=== PATIENT | male | born 1950 | race Caucasian/White ===

== ENCOUNTER 2018-09-29 13:26 | Inpatient (IN) | payer MEDICARE ==
[2018-09-29] VITALS (14 sets, daily range): BP systolic 92–124; BP diastolic 51–85; BMI 27.1
[~2018-09-29] VITALS: Ht 170.2 cm; Wt 77.1 kg
--- NOTE | ~2018-09-29 | HEMODYNAMI ---
PATIENT:TASIA HINES MEDICAL RECORD: [id number] : 50 LOCATION:D. ADMISSION DATE: 09/29/18 Generatedon:09/29/201814:32 Patient name: TASIA HINES Patient #: [id number] SSN: : 1950 Date of study: 09/29/2018 Page: Of Hemodynamic Procedure Report Patient Data Patient Demographics Procedure consent was obtained First Name: TASIA Gender: Male Last Name: FLORA : 1950 Patient #: [id number] Age: 68 year(s) Race: Unknown Additional ID: [id number] Contact details [address]: [address] [place] [address] State: [place] City: [place] Zip code: [address] Past Medical History Allergies: No known allergies Admission Admission Data Admission Date: 09/29/2018 Admission Time: 13:26 Procedure Procedure Types Cath Procedure Diagnostic Procedure LHC LHC w/Coronaries PCI Procedure Coronary Stent Coronary Stent Additional AMI/SVG/INCUBATOR MACHINE OPERATOR PTCA or Stent AMI-BMS/ERLINDA Initial Procedure Description Procedure Date Procedure Date: 09/29/2018 Procedure Start Time: 13:57 Procedure End Time: 14:23 Procedure Staff Name Function Scott Tomas MD Performing Physician Juvenal Cabrera RT Monitor Alyce Mayo RT Scrub Joseph Stevenson RN Nurse Procedure Data Cath Procedure Fluoroscopy Diagnostic fluoroscopy Total fluoroscopy Time: 7.7 time: 7.7 min min Diagnostic fluoroscopy Total fluoroscopy dose: dose: 535.36 mGy 535.36 mGy Contrast Material Contrast Material Type Amount (ml) Visipaque 320 0 Isovue 300 149 Entry Location Entry Primary Successful Side Size Upsize Upsize Entry Closure Succes sful Closure Location (Fr) 1 (Fr) 2 (Fr) Remarks Device Remarks Femoral Right 6 Fr Exoseal artery Short Diagnostic catheters Device Type Used For End Catheter Placement MULTIPACK Pigtail 5 Fr LV Angiography catheter MULTIPACK JL 4.0 5Fr Left Coronary catheter Angiography MULTIPACK 3DRC 5Fr Right Coronary catheter Angiography Procedure Complications No complications Procedure Medications Medication Administration Route Dosage Oxygen etCO2 Nasal cannula 2 l/min Lidocaine 2% added to field 20 Heparin Flush Bag added to field 2 bags (1000units/500ml NS) 0.9% NaCl I.V. 100 ml/hr Versed I.V. 1 mg Fentanyl I.V. 50 mcg Integrilin (Bolus I.V. 6.8 ml 2mg/ml) Heparin Bolus I.V. 5000 units Versed I.V. 1 mg Fentanyl I.V. 50 mcg Integrilin Drip I.V. drip 12.3 ml/hr (75mg/100ml) Hemodynamics Rest Heart Rate: 82 (bpm) Snapshots Pre Cath Intra NCS Post Cath Vital Signs Time Heart Resp SPO2 etCO2 NIBP Rhythm Pain Status Sedation Rate (ipm) (%) (mmHg) (mmHg) Level (bpm) 13:52:31 82 32 99 0 121/71(96) NSR w/ ST 10 (11) , 10(A) Elevation Unimaginable unspeakable 13:56:43 82 10 98 0 116/71(94) NSR w/ ST 0 (11) , No 10(A) Elevation pain 14:00:53 81 11 94 0 115/67(90) NSR w/ ST 0 (11) , No 9(A) Elevation pain 14:05:05 78 16 100 0 112/65(87) NSR w/ ST 0 (11) , No 9(A) Elevation pain 14:09:11 78 16 98 0 113/80(93) NSR w/ ST 0 (11) , No 9(A) Elevation pain 14:13:21 83 22 98 0 109/73(78) NSR w/ ST 0 (11) , No 9(A) Elevation pain 14:17:33 82 18 98 0 106/66(88) NSR w/ ST 0 (11) , No 10(A) Elevation pain 14:21:36 81 13 98 0 106/67(90) NSR w/ ST 0 (11) , No 10(A) Elevation pain Medications Time Medication Route Dose Verified Delivered Reason Notes Effectiveness by by 13:54:33 Oxygen etCO2 2 Scott Ruiz used for Nasal l/min Genoveva Stevenson marketing operations assistant cannula 13:54:38 Lidocaine 2% added 20ml Scott Chavez for local to vial Genoveva Tomas MD anesthetic field 13:54:47 Heparin Flush added 2 Scott Scott used for Bag to bags Genoveva Tomas MD procedure (1000units/500ml field NS) 13:54:58 0.9% NaCl I.V. 100 Scott Ruiz Per physician ml/hr Genoveva Stevenson RN 13:55:09 Versed I.V. 1 mg Scott Ruiz for sedation Genoveva Stevenson RN 13:55:17 Fentanyl I.V. 50 Scott Buffie for sedation mcg Genoveva Stevenson RN 13:59:49 Integrilin I.V. 6.8 Scott Buffie for waste d (Bolus 2mg/ml) ml Genoveva Stevenson RN antiplatelet 3.2 ml therapy of vial 14:02:39 Heparin Bolus I.V. 5000 Sctot Ruiz for verif ied units Genoveva Stevenson RN anticoagulation with dr genoveva 14:07:03 Versed I.V. 1 mg Scott Ruiz for sedation Genoveva Stevenson RN 14:07:09 Fentanyl I.V. 50 Scott Ruiz for sedation mcg Genoveva Stevenson RN 14:14:19 Integrilin Drip I.V. 12.3 Scott Buffie for Until (75mg/100ml) drip ml/hr Genoveva Stevenson RN antiplatelet bottle therapy is complete Procedure Log Time Note 13:35:42 Juvenal Cabrera RT(R) sent for patient. Start room use. 13:35:43 Time tracking: Regular hours (M-F 7:00 - 5:00) 13:35:47 Plan of Care:Hemodynamics will remain stable., Cardiac rhythm will remain stable., Comfort level will be maintained., Respiratory function will remain adequate., Patient/ family verbilizes understanding of procedure., Procedure tolerated without complication., Recovers from procedure without complications.. 13:51:26 Vital chart was started 13:51:52 Patient received from ED to CCL 3 Alert and oriented. Tansferred to table in Supine position. 13:51:53 Warm blankets applied, and rosalie hugger turned on for patient comfort. 13:51:53 Correct patient and procedure confirmed by team. 13:51:56 Signed procedure consent form obtained from spouse. 13:51:57 Baseline sample Acquired. 13:51:57 ECG and BP/O2 sat monitors applied to patient. 13:52:00 Rhythm: w/ ST elevation 13:52:01 Full Disclosure recording started 13:52:04 Pre-procedure instructions explained to patient. 13:52:05 Pre-op teaching completed and patient verbalized understanding. 13:52:07 Family in waiting room. 13:52:23 Patient allergic to No known allergies 13:52:25 Is the patient allergic to Iodine/contrast media? No. 13:52:27 Is patient on blood thinner?Yes 13:52:29 ACC The patient was administered the following blood thiners within the last 24 hours: ACCPlavix 13:52:32 Patient diabetic? No. 13:52:33 ----Pre-sedation anethsthesia assessment.---- 13:52:35 Previous problem with sedation/anesthesia? No ? 13:52:36 Snore? No 13:52:37 Sleep apnea? No 13:52:38 Deviated septum? No 13:52:39 Opens mouth fully? Yes 13:52:41 Sticks out tongue? Yes 13:52:43 Airway obstruction? No ? 13:52:47 Dentures? Yes in tight 13:54:03 Pre procedure: right dorsailis pedis pulse 2+ Normal; easily identifiable; not easily obliterated 13:54:09 Patient pain scale 10/10 cp. 13:54:14 IV patent on arrival in left antecubital with 0.9% NaCl at 10ml/hr. 13:54:22 Lab results pending. 13:54:25 Right groin area was prepped with chlora-prep and draped in sterile fashion 13:54:27 Alarms reviewed by R. N. 13:54:27 Sharps counted by scrub and verified by R.N. 13:54:29 Physician arrived 13:54:30 --------ALL STOP TIME OUT------ 13:54:30 Final Timeout: patient, procedure, and site verified with staff and physician. All members of the team are in agreement. 13:54:32 Right groin site verified by team. 13:54:33 Oxygen 2 l/min etCO2 Nasal cannula was administered by Joseph Stevenson RN; used for procedure; 13:54:34 Physical assessment completed. ASA score P 2 - A patient with mild systemic disease as per Scott Tomas MD. 13:54:37 Sedation plan: IV Moderate Sedation Medication:Versed, Fentanyl 13:54:38 Lidocaine 2% 20ml vial added to field was administered by Scott Tomas MD; for local anesthetic; 13:54:47 Heparin Flush Bag (1000units/500ml NS) 2 bags added to field was administered by Scott Tomas MD; used for procedure; 13:54:56 Use device set Femoral Dx 13:54:58 0.9% NaCl 100 ml/hr I.V. was administered by Joseph Stevenson RN; Per physician; 13:54:58 ACIST Syringe (44197) opened to sterile field. 13:54:58 Bag Decanter (2002S) opened to sterile field. 13:54:59 Medline Cath Pack ([id number]) opened to sterile field. 13:55:00 DIAGNOSTIC WIRE .035 260cm J wire ([id number]) opened to sterile field. 13:55:04 ACIST Hand Control (33870) opened to sterile field. 13:55:05 ACIST Manifold (29792) opened to sterile field. 13:55:05 DIAGNOSTIC Multipack 5Fr catheter set (BA5306) opened to sterile field. 13:55:06 Tegaderm 4 x 4 (1626W) opened to sterile field. 13:55:09 Versed 1 mg I.V. was administered by Joseph Stevenson RN; for sedation; 13:55:13 SHEATH 6FR [place] (BYF062) opened to sterile field. 13:55:17 Fentanyl 50 mcg I.V. was administered by Joseph Stevenson RN; for sedation; 13:55:20 INFLATOR Merit BasixCompak (EG4590) opened to sterile field. 13:55:40 CHOICE PT Extra Support 182cm wire ([id number]) opened to sterile field. 13:57:23 Procedure started. 13:57:43 Local anesthetic to right femoral artery with Lidocaine 2% by Scott Tomas MD.INITIAL ACCESS ONLY 13:57:50 A 6 Fr Short sheath was inserted into the Right Femoral artery 13:58:12 Zero performed for pressure channel P1 13:58:16 Zero performed for pressure channel P1 13:58:25 A MULTIPACK Pigtail 5 Fr catheter was advanced over the wire and used for LV Angiography. 13:58:29 LV angiography performed. 13:58:31 LV hemodynamics recorded. 13:58:41 EF : 40 % 13:59:11 Zero performed for pressure channel P1 13:59:17 Catheter removed. 13:59:26 A MULTIPACK JL 4.0 5Fr catheter was advanced over the wire and used for Left Coronary Angiography. 13:59:32 LCA angiography performed. 13:59:44 Catheter removed. 13:59:49 Integrilin (Bolus 2mg/ml) 6.8 ml I.V. was administered by Joseph Stevenson RN; for antiplatelet therapy; wasted 3.2 ml of vial 13:59:50 A MULTIPACK 3DRC 5Fr catheter was advanced over the wire and used for Right Coronary Angiography. 14:00:23 RCA angiography performed. 14:00:31 Zero performed for pressure channel P1 14:01:20 Catheter removed. 14:01:46 GUIDE 6FR XBLAD 4.0 catheter ([id number]) opened to sterile field. 14:01:57 6 Fr xblad 4 guide catheter was inserted over the wire 14:02:01 cptes wire advanced. 14:02:39 Heparin Bolus 5000 units I.V. was administered by Joseph Stevenson RN; for anticoagulation; verified with dr tomas 14:03:29 Wire removed. 14:03:31 Guide catheter removed. 14:03:57 GUIDE 6FR XBLAD 3.5 catheter ([id number]) opened to sterile field. 14:04:06 6 Fr xblad 3.5 guide catheter was inserted over the wire 14:04:12 cptes wire advanced. 14:06:32 Wire advanced across lesion. 14:06:49 CHOICE PT Extra Support 182cm wire ([id number]) opened to sterile field. 14:06:59 cptes wire advanced. 14:07:03 Versed 1 mg I.V. was administered by Joseph Stevenson RN; for sedation; 14:07:09 Fentanyl 50 mcg I.V. was administered by Joseph Stevenson RN; for sedation; 14:07:53 2nd wire diag 14:09:39 Inflate balloon Inflation number: 1 A EUPHORA 2.5 x 15 Balloon ([id number]) was prepped and advanced across the Mid LAD, then inflated to 7 JORGE for 0:07 (min:sec). 14::59 Inflation number: 2 The EUPHORA 2.5 x 15 Balloon ([id number]) was reinflated across the Mid LAD, to 13 JORGE for 0:10 (min:sec). 14:10:27 Balloon removed over the wire. 14:12:29 Place stent Inflation Number: 3 A INTEGRITY RX 3.0 x 09 stent ([id number]) was prepped and advanced across the Mid LAD. The stent was deployed at 13 JORGE for 0:10 (min:sec). 14:12:37 Stent catheter was removed intact over wire. 14:12:38 Wire removed. 14:13:58 Inflation number: 1 The EUPHORA 2.5 x 15 Balloon ([id number]) was reinflated across the 1st Diag, to 13 JORGE for 0:07 (min:sec). 14:14:01 Balloon removed over the wire. 14:14:19 Integrilin Drip (75mg/100ml) 12.3 ml/hr I.V. drip was administered by Joseph Stevenson RN; for antiplatelet therapy; Until bottle is complete 14:15:26 Place stent Inflation Number: 2 A INTEGRITY RX 3.0 x 15 stent ([id number]) was prepped and advanced across the 1st Diag. The stent was deployed at 15 JORGE for 0:13 (min:sec). 14:16:41 Procedure type changed to Cath procedure, Diagnostic procedure, LHC, LHC w/Coronaries, PCI procedure, Coronary Stent, Coronary Stent Additional, AMI/SVG/INCUBATOR MACHINE OPERATOR PTCA or Stent, AMI-BMS/ERLINDA Initial 14:16:56 Stent catheter was removed intact over wire. 14:16:57 Wire removed. 14:16:57 Guide catheter removed. 14:17:04 Sheath removed intact; hemostasis achieved with Exoseal to the Right Femoral artery. 14:17:40 EXOSEAL 6Fr (EX600) opened to sterile field. 14:17:43 Procedure ended.(Physican Out) 14:17:56 Fluoroscopy time 07.70 minutes. 14:18:03 Flurop Dose total: 535.36 14:18:03 Fluoroscopy dose: 535.36 mGy 14:18:09 Contrast amount:Visipaque 320 0ml. 14:18:13 Contrast amount:Isovue 300 149ml. 14:18:15 Sharps counted by scrub and verified by R.N. 14:18:15 Insertion/operative site no bleeding no hematoma. 14:18:19 Post-op/insertion site Right Femoral artery dressed using a 4 x 4 and Tegaderm. 14:18:22 Post right femoral artery:stable 14:18:23 Post Procedure Pulses reassessed and unchanged 14:18:25 Post procedure: right dorsailis pedis pulse 1+ Palpable, but thready & weak; easily obliterated. 14:18:33 Post procedure rhythm: sinus rhythm 14:18:35 Post procedure instruction explained to patient.Patient verbalizes understanding. 14:18:37 Procedure and supply charges have been captured, reviewed, submitted and are correct. 14:23:13 Procedure Complication : No complications 14:23:22 Vital chart was stopped 14:23:23 See physician's report for complete and final results. 14:23:25 Report given to CVICU. 14:23:29 Patient transfered to CVICU with Bed. 14:23:31 Procedure ended. 14:23:31 Full Disclosure recording stopped 14:23:34 End room use (Document Last) Intervention Summary Intervention Notes Time ActionType Lesion and Equipment Action# Pressure Duration Attributes Used 14:09:39 Inflate Mid LAD EUPHORA 2.5 1 7 00:07 balloon x 15 Balloon ([id number]) 14:09:59 Reinflate Mid LAD EUPHORA 2.5 2 13 00:10 balloon x 15 Balloon ([id number]) 14:12:29 Place stent Mid LAD INTEGRITY RX 3 13 00:10 3.0 x 09 stent ([id number]) 14:13:58 Reinflate 1st Diag EUPHORA 2.5 1 13 00:07 balloon x 15 Balloon ([id number]) 14:15:26 Place stent 1st Diag INTEGRITY RX 2 15 00:14 3.0 x 15 stent ([id number]) Device Usage Item Name Manufacture Quantity Catalog Number Hospital Part Current Mini mal Lot# / Charge Number Stock Stock Serial# Code [facility] Acist 1 32502 856458 783151 570948 20 Syringe ChoiceStream (30833) Systems Inc Bag Decanter Microtek 1 299102 46891 116155 5 () Medical Inc. Medline Cath Medline 1 [id number] 932421 06312 033190 5 Pack ([id number]) DIAGNOSTIC St Robbi 1 690843 798475 027804 524222 30 WIRE .035 260cm J wire (690829) ACIST Hand Acist 1 00596 392549 648722 713244 5 Control Medical (39054) Systems Inc ACIST Acist 1 67507 396240 740755 361327 5 Manifold Medical (22636) Systems Inc DIAGNOSTIC Cardinal 1 WS6754 190347 57343 254400 30 Multipack Health 5Fr catheter set (ZB8282) Tegaderm 4 x 3M 1 1626W 088461 434825 868399 5 4 (1626W) SHEATH 6FR Terumo 1 FJI153 971301 731329 209308 40 [place] (CVB716) INFLATOR Merit 1 GG9339 373572 775610 314493 15 Racktivity Medical BasixCompak (DL0315) CHOICE PT [place] 2 [id number] 054359 931229 375623 5 Extra Scientific Support 182cm wire ([id number]) MULTIPACK Cardinal 1 424507 5 Pigtail 5 Fr Health catheter MULTIPACK JL Cardinal 1 356100 5 4.0 5Fr Health catheter MULTIPACK Cardinal 1 180168 5 3DRC 5Fr Health catheter GUIDE 6FR Cardinal 1 [id number] 264471 082740 921330 3 XBLAD 4.0 Health catheter ([id number]) GUIDE 6FR Cardinal 1 [id number] 639939 192485 237153 10 XBLAD 3.5 Health catheter (12937608) EUPHORA 2.5 Medtronic 1 [id number] 670561 788107 742089 5 [id number] x 15 Balloon ([id number]) INTEGRITY RX Medtronic 1 [id number] 283408 128308 154027 5 [id number] 3.0 x 09 stent ([id number]) INTEGRITY RX Medtronic 1 [id number] 397424 001409 510412 5 [id number] 3.0 x 15 stent ([id number]) EXOSEAL 6Fr Cardinal 1 EX600 168321 532315 160583 10 (EX600) Health Signature Audit [place] Stage Time Signature Unsigned Intra-Procedure 09/29/2018 Juvenal Cabrera RT(R) 2:32:21 PM Signatures Monitor : Juvenal Cabrera RT Signature : Date : Time : [address] [place] [address]
[2018-09-29] MEDS ORDERED: COZAAR25 MG PO (13:30)
[2018-09-29] MEDS ORDERED: COZAAR100 MG PO (13:31)
[2018-09-29 14:10] LABS: HEMATOCRIT 42.1 % (42.0-54.0); HEMOGLOBIN 14.6 g/dL (13.5-17.5); MCH 28.3 pg (26.0-34.0); MCHC 34.7 g/dL (31.0-37.0); MCV 81.7 fL (80.0-100.0); MEAN PLATELET VOLUME 10.7 fL (7.4-10.4); PLATELET COUNT 260 10x3/uL (130-400); RBC 5.15 10x6/uL (4.20-6.10); RDW 13.7 % (11.5-14.5); WBC 20.6 10x3/uL (4.8-10.8)
[2018-09-29 14:15] LABS: APTT 27.4 SECONDS (22.8-39.4); INR 1.14 (0.85-1.17)
[2018-09-29 14:26] LABS: ALBUMIN 3.3 g/dL (3.4-5.0); ALKALINE PHOSPHATASE 89 U/L (46-116); ALT (SGPT) 19 U/L (10-68); CALC OSMOLALITY 282 mosm/kg (275-300); CALCIUM 8.7 mg/dL (8.5-10.1); CARBON DIOXIDE 20.5 mmol/L (21.0-32.0); CHLORIDE - SERUM 103 mmol/L (98-107); CKMB 5.3 U/L (0.0-3.6); CREATINE KINASE 79 UL (21-232); GLUCOSE 156 mg/dL (74-106); MAGNESIUM - SERUM 1.8 mg/dL (1.8-2.4); PROTEIN - SERUM 6.6 g/dL (6.4-8.2); SODIUM 139 mmol/L (136-145); UREA NITROGEN 18 mg/dL (7-18); eGFR NON AFRICAN AMERICAN 79 mL/min (90-120)
[2018-09-29 14:35] LABS: POTASSIUM - SERUM 2.9 mmol/L (3.5-5.1); TROPONIN-I 0.196 ng/mL (0.000-0.060)
[2018-09-29 15:00] LABS: ANISOCYTOSIS OCC; BASOPHILS 1 % (0-2); EOSINOPHILS 1 % (0-7); LYMPHOCYTES 15 % (15-50); MONOCYTES 10 % (2-11); NEUTROPHILS 68 % (40-80); PLATELET ESTIMATE NORMAL
--- NOTE | 2018-09-29 17:14 | NUR ---
1444 PT RECIEVED TO ROOM ALERT, OREINTED VSS O2 4L NC, DENIES PAIN, LAC PIV WITH NS 100ML/HR X4 HOURS AND INTEGRILIN 12.3 UNTIL BOTTLE EMPTY, FEMSTOP IN PLACE, R GROIN SOFT TO PALPATE, PULSES EASILY PALPABLE, FAMILY UPDATED BY DR NARAYANAN AND AT BEDSIDE 1700 VOIDED 400ML URINE, SPOKE WITH DR NARAYANAN AND OKAYED TO START DIET, LETTING AIR OUT OF FEMSTOP, PULSES EASILY PALPABLE, NO HEMATOMA OR SIGNS OF BLEEDING
--- NOTE | 2018-09-29 19:02 | NUR ---
BEDSIDE SHIFT REPORT GIVEN BY DEPARTING RN. PT LAYING FLAT IN BED. LEFT AC PIV INFUSING MD ORDERED MEDS AT SET RATE. RT GROINCATH INSERTION SITE MIKE SHOWING NO SIGNS OF BRUISING, OOZING, OR HEMATOMA. PULSES PALPATED T/O. DENIES ANY NEEDS AT THIS TIME. ASSESSMENT COMPLETE. DENIES ANY PAIN. DECLINED OFFER FOR REFRESHMENTS. AAOX4. PERRLA. SAFETY MEASURES IN PLACE. CBIR.
--- NOTE | 2018-09-29 22:21 | NUR ---
400 CLR YELLOW URINE NOTED IN URINAL. FRESH ICE WATER PROVIDED ALONG WITH PUDDING SNACK. REPOSITIONED IN BED. HEAD OF BED UP. RT GROIN INCISION SITE WDP. NO CHANGES TO NOTE. REASSESSMENT COMPLETE. VSS. IV SALINE LOCKED AND FLUSHED WITHOUT DIFFICULTY. VOICES NO NEEDS AT THIS TIME. SAFETY MEASURES IN PLACE. CBIR.
[2018-09-30] VITALS (12 sets, daily range): BP systolic 97–123; BP diastolic 54–80; Ht 170.2 cm; Wt 77.1 kg
--- NOTE | 2018-09-30 03:19 | NUR ---
REASSESSMENT COMPLETE. REPOSITIONS SELF. DENIES PAIN.
--- NOTE | 2018-09-30 08:22 | NUR ---
0700 PT RECIEVED ALERT AND ORIENTED VSS ON ROOM AIR DENIES PAIN LAC PIV SALINE LOCKED, R GROIN CATH SITE CDI, SOFT TO PALPATE AND NO SIGNS OF BLEEDING CONTINENT, ASSISTED UP TO CHAIR 0800 ATE 100% BREAKFAST AND TOOK AM MEDS WITHOUT DIFFICULTY
--- NOTE | 2018-09-30 10:23 | OP ---
PATIENT NAME: TASIA HINES MEDICAL RECORD: [id number] :50 LOCATION:[facility] ADMISSION DATE:09/29/18 SURGEON: AZEEM NARAYANAN MD DATE OF OPERATION: 09/29/2018 PROCEDURES: 1. PTCA and stent, LAD. 2. PTCA and stent, LAD diagonal. 3. Left heart catheterization. 4. Selective coronary angiography. 5. Left ventriculogram. PROCEDURE IN DETAIL: After informed consent was obtained with detailed description of risks and benefits as well as alternative therapies, the patient elected to proceed with angiogram and angioplasty. The right femoral area was prepped and draped in normal sterile fashion. The right femoral artery was cannulated via modified Seldinger technique with placement of 6-Taiwanese sheath. All catheters were exchanged through this sheath. FINDINGS: Left ventriculogram performed in standard 30-degree GAR view reveals anteroapical hypokinesis. Overall ejection fraction is 40%. SELECTIVE CORONARY ANGIOGRAPHY: 1. Right coronary has a hazy stenosis proximally that could be greater than 70%, would be better delineated by intravascular ultrasound. There is 90 plus percent stenosis in the PDA. 2. Left circumflex has moderate irregularities, but no flow-limiting stenosis. 2. Left anterior descending has total occlusion at bifurcation of the LAD and the LAD diagonal. PTCA AND STENTS OF LAD AND LAD DIAGONAL: The LAD was addressed with a 3.0 x 9-mm Integrity and the diagonal with a 3.0 x 15-mm Integrity. Result was 0% residual stenosis with faith of THOMAS 3 flow. IMPRESSION: Successful PTCA and stent of the LAD and diagonal, going from 100% initial stenosis to 0% residual stenosis. TRANSINT:[id number] Voice Confirmation ID: [id number] DOCUMENT ID: [id number] AZEEM NARAYANAN MD at 1023 CC: [id number] DICTATION DATE: 09/29/18 1423 CABLE TOWER OPERATOR: 09/29/18 1632 [place] [address]
--- NOTE | 2018-09-30 10:23 | HP ---
PATIENT: TASIA HINES MEDICAL RECORD: [id number] ACCOUNT: [id number] LOCATION:[facility] D.CV01 : 50 ADMISSION DATE: 09/29/18 PCP: LOTTIE SIMEON HISTORY AND PHYSICAL EXAMINATION DIAGNOSES: 1. Acute anterior myocardial infarction. 2. Hypertension. HISTORY OF PRESENT ILLNESS: This is a gentleman with no history of ischemic heart disease, presents with acute chest pain. EKG is compatible with an acute anterior myocardial infarction. REVIEW OF SYSTEMS: The patient reports easy bruising but reports no swollen glands. The patient reports no fever, no night sweats, no significant weight gain, no significant weight loss. No significant exercise tolerance. The patient reports no dry eyes, no irritation, no vision change. Patient reports no difficulty hearing and no ear pain. Patient reports no frequent nose bleeds or nose and sinus problems. Patient reports on arm pain on exertion. No shortness of breath while lying down. No history of heart murmur. Patient reports no cough, no wheezing or coughing up blood. Patient reports no abdominal pain, no vomiting. Normal appetite. No diarrhea and not vomiting blood. No nausea and no constipation. Patient reports no incontinence. No difficulty urinating. No hematuria. No increased frequency. Patient reports no muscle aches. No weakness, no arthralgias, no back pain. No swelling of the extremities. Patient reports no abnormal mole, no jaundice, no rashes. Reports no loss of consciousness. No weakness and no numbness. No seizures, dizziness, or headaches. The patient reports no depression, no sleep disturbance, feeling safe in a relationship and no alcohol abuse. Patient reports on fatigue. Reports no runny nose or sinus pressure. No itching, no hives, and no frequent sneezing. PHYSICAL EXAMINATION: GENERAL APPEARANCE: Well-nourished, well-developed, appears stated age. Level of distress, comfortable. PSYCHIATRIC: Mental status, alert, normal affect. Orientation, oriented to time, place and person. EYES: Lids and conjunctiva, noninjected. No discharge, no pallor. ENT: Lips, teeth, gums, normal dentition. Oropharynx, no cyanosis, no pallor. NECK: Carotid arteries, bilateral normal upstroke, no bruits, no thrills. JUGULAR VEINS: No jugular venous pressure or distention. CERVICAL LYMPH NODES: Nontender, nonenlarged. THYROID: Not enlarged. Nontender. No nodules. LUNGS: Respiratory effort, unlabored. CHEST: Normal curvature. No thoracic deformity. No chest wall tenderness. Percussion, resonant. Auscultation, clear. No wheezes, no rales, no rhonchi. CARDIOVASCULAR: Precordial exam, nondisplaced. No heaves or pericardial thrills. Rate and rhythm, regular. Heart sounds, normal S1, normal S2. No S3, no gallop, no rub. Systolic murmur, not heard. Diastolic murmur, not heard. EXTREMITIES: No cyanosis, no edema. Peripheral pulses, full and equal in all extremities, except as noted. No bruits appreciated. ABDOMEN: Soft, nondistended. Normal aorta. No bruit. Nontender. No masses. Liver, nontender, no hepatomegaly. Spleen, nontender, no splenomegaly. MUSCULOSKELETAL: No joint tenderness. No joint swelling. No erythema. NEUROLOGICAL: Normal gait, normal strength, normal tone. HISTORY AND PHYSICAL [id number] SAMITTTASIA SKIN: Warm and dry. OVERALL IMPRESSION: Acute anterior myocardial infarction. We will proceed with coronary angiography. Further care depends upon the findings of the angiography. TRANSINT:[id number] Voice Confirmation ID: [id number] DOCUMENT ID: [id number] AZEEM NARAYANAN MD at 1023 CC: [id number] DICTATION DATE: 09/29/18 1350 MANAGER DISCOVERY: 09/29/18 1421 ADM IN [place] [id number] [place] [address]
--- NOTE | 2018-09-30 12:06 | MORECARE ---
CASE MANAGEMENT DISCHARGE SUMMARY PATIENT: TASIA HINES UNIT: [id number] ADM DATE: 09/29/18 AGE: 68 : 50 SEX: M ROOM/BED: D.[facility] AUTHOR: CHRISTIANA,DOC PHYSICIAN: REFERRING PHYSICIAN: AZEEM NARAYANAN MD DATE OF SERVICE: 09/30/18 Discharge Plan Patient Name: TASIA HINES Facility: [facility]:[place] : 1950 Planned Disposition: Home Anticipated Discharge Date: Discharge Date: Expected LOS: Initial Reviewer: [email or web address] Initial Review Date: 09/29/2018 Generated: 09/30/18 1:06 pm Comments DCP- Discharge Planning Updated by [email or web address]: Mary Carmen Walker on 09/30/18 11:[address] Patient Name: TASIA HINES Admission Status: ER Accout number: [id number] Admission Date: 09-29-2018 : 1950 Admission Diagnosis: Attending: SAIRA NARAYANAN Current LOS: 1 Anticipated DC Date: Planned Disposition: Home Primary Insurance: [employer] / [email or web address] Discharge Planning Comments: CM met with patient and spouse at bedside after obtaining verbal consent. Patient states he plans on returning home after discharge with his . Patient states he will have family transport him home via private vehicle. Patient denies any discharge needs at this time. CM will continue to follow and assist as needed for discharge planning / needs. Manhole Stripper: Mary Carmen Walker DCPIA - Discharge Planning Initial Assessment Updated by [email or web address]: Mary Carmen Walker on 09/30/18 12:04 pm * Is the patient Alert and Oriented? Yes * How many steps to enter\exit or inside your home? * PCP DR. SIMEON * Pharmacy [facility] * Preadmission Environment Home with Family * ADLs Independent * Equipment None * List name and contact numbers for known caregivers / representatives who currently or will assist patient after discharge: LOTTIE MAKI - SON- [phone] * Verbal permission to speak to the caregivers and representatives has been obtained from the patient. N/A * Community resources currently utilized None * Additional services required to return to the preadmission environment? No * Can the patient safely return to the preadmission environment? Yes * Has this patient been hospitalized within the prior 30 days at any hospital? No Patient Name: TASIA HINES Page 16487 at 1206 All edits/amendments must be made on the electronic document DICTATION DATE: 09/30/18 1206 EGG FACTORY WORKER: GRETTA 09/30/18 1206 RPT#: [id number] DC DATE: STATUS: ADM IN [facility] [address] [place] [address] END OF REPORT
--- NOTE | 2018-09-30 12:18 | NUR ---
1000 REPOSITIONED IN CHAIR VSS DENIES PAIN 1099 SEEN BY JAVIER RAGLAND TO RI AND COME TO GIG TENDER FOR NEXT CATH AND STENT TO [facility], WRITTEN PRESCRIPTIONS GIVEN TO AND PT AFTER REVIEWING, BOTH DENY ANY QUESTIONS, PIV REMOVED TIP INTACT, DENIES ALL NEEDS, ASSISTED TO CAR AT 1200
--- NOTE | 2018-09-30 15:21 | MORECARE ---
CASE MANAGEMENT DISCHARGE SUMMARY PATIENT: TASIA HINES UNIT: [id number] ADM DATE: 09/29/18 AGE: 68 : 50 SEX: M ROOM/BED: D[facility] AUTHOR: CHRISTIANA,DOC PHYSICIAN: REFERRING PHYSICIAN: AZEEM NARAYANAN MD DATE OF SERVICE: 09/30/18 Discharge Plan Patient Name: TASIA HINES Facility: [facility]:[place] : 1950 Planned Disposition: Home Anticipated Discharge Date: Discharge Date: 09/30/2018 Expected LOS: Initial Reviewer: [email or web address] Initial Review Date: 09/29/2018 Generated: 09/30/18 4:21 pm Comments DCP- Discharge Planning Updated by [email or web address]: Mary Carmen Walker on 09/30/18 11:[address] Patient Name: TASIA HINES Admission Status: ER Accout number: [id number] Admission Date: 09-29-2018 : 1950 Admission Diagnosis: Attending: SAIRA NARAYANAN Current LOS: 1 Anticipated DC Date: Planned Disposition: Home Primary Insurance: [employer] Discharge Planning Comments: CM met with patient and spouse at bedside after obtaining verbal consent. Patient states he plans on returning home after discharge with his . Patient states he will have family transport him home via private vehicle. Patient denies any discharge needs at this time. CM will continue to follow and assist as needed for discharge planning / needs. Road Roller Engineer: Mary Carmen Walker DCPIA - Discharge Planning Initial Assessment Updated by [email or web address]: Mary Carmen Walker on 09/30/18 12:04 pm * Is the patient Alert and Oriented? Yes * How many steps to enter\exit or inside your home? * PCP DR. SIMEON * Pharmacy [facility] * Preadmission Environment Home with Family * ADLs Independent * Equipment None * List name and contact numbers for known caregivers / representatives who currently or will assist patient after discharge: LOTTIE MAKI - SON- [phone] * Verbal permission to speak to the caregivers and representatives has been obtained from the patient. N/A * Community resources currently utilized None * Additional services required to return to the preadmission environment? No * Can the patient safely return to the preadmission environment? Yes * Has this patient been hospitalized within the prior 30 days at any hospital? No Last DP export: 09/30/18 11:06 a Patient Name: TASIA HINES Page 84340 at 1521 All edits/amendments must be made on the electronic document DICTATION DATE: 09/30/18 152 BAND SPLICER: GRETTA 09/30/181520 RPT#: [id number] DC DATE:09/30/18 STATUS: DIS IN [facility] [address] [place] [address] END OF REPORT
[2018-10-01] MEDS ORDERED: PRAVACHOL20 MG PO (02:07)
[2018-10-01] MEDS ORDERED: PLAVIX75 MG PO (02:07)
[2018-10-01] MEDS ORDERED: TOPROL XL50 MG PO (02:09)
[2018-10-01] MEDS ORDERED: BAYER CHEWABLE81 MG PO (02:14)
--- NOTE | 2018-10-02 18:15 | DS ---
PATIENT:TASIA HINES :[birth year] MEDICAL RECORD: [id number] DISCHARGE SUMMARY ADMISSION DATE: 09/29/18 DISCHARGE DATE: 09/30/18 DISCHARGE DIAGNOSES: 1. Acute anterior myocardial infarction. 2. Coronary artery disease. 3. Hypertension. 4. Hyperlipidemia. HOSPITAL COURSE: Mr. Hines presents with an acute anterior myocardial infarction and underwent successful PTCA and stent of the LAD and LAD diagonal. Discharged home on aspirin, Plavix, Pravachol, and metoprolol. We will follow up next Saturday for PTCA and stent of the right coronary artery. TRANSINT:[id number] Voice Confirmation ID: [id number] DOCUMENT ID: [id number] AZEEM NARAYANAN MD at 1815 CC: [id number] DICTATION DATE: 09/30/18 1121 DIGITAL PRODUCER: 09/30/18 2225 DIS IN 09/30/18 [facility] [address] [place] [address]
== END 2018-09-30 12:00 | disposition home or self-care (01) | DRG 249 ==
LOC: D.ER 13:26 → D.CVICU 14:45
PROVIDERS: Emergency Medicine; ADMIT Internal Medicine Interventional Cardiology
PROC: 02713FZ Dilation of Coronary Artery, Two Arteries with Three Intraluminal Devices, Percutaneous Approach (ICD-10-PCS; principal; 2018-09-30)
PROC: B241ZZ3 Ultrasonography of Multiple Coronary Arteries, Intravascular (ICD-10-PCS; 2018-09-30)
PROC: B2111ZZ Fluoroscopy of Multiple Coronary Arteries using Low Osmolar Contrast (ICD-10-PCS; 2018-09-30)
PROC: B2151ZZ Fluoroscopy of Left Heart using Low Osmolar Contrast (ICD-10-PCS; 2018-09-30)
PROC: 4A023N7 Measurement of Cardiac Sampling and Pressure, Left Heart, Percutaneous Approach (ICD-10-PCS; 2018-09-30)
DX: I21.09 ST elevation (STEMI) myocardial infarction involving other coronary artery of anterior wall (principal); I25.119 Atherosclerotic heart disease of native coronary artery with unspecified angina pectoris; E78.5 Hyperlipidemia, unspecified; I10 Essential (primary) hypertension; M54.2 Cervicalgia; R07.9 Chest pain, unspecified

== ENCOUNTER 2018-09-30 13:50 | Inpatient (IN) | payer MEDICARE ==
[~2018-09-30] VITALS: Ht 170.2 cm; Wt 75.5 kg
[2018-09-30] VITALS (15 sets, daily range): BP systolic 100–130; BP diastolic 62–88; Ht 170.2 cm; Wt 75.5 kg
--- NOTE | ~2018-09-30 | HEMODYNAMI ---
PATIENT:TASIA HINES MEDICAL RECORD: [id number] : 50 LOCATION:[facility] ADMISSION DATE: 09/30/18 Generatedon:09/30/201816:06 Patient name: TASIA HINES Patient #: [id number] SSN: : 1950 Date of study: 09/30/2018 Page: Of Hemodynamic Procedure Report Patient Data Patient Demographics Procedure consent was obtained First Name: TASIA Gender: Male Last Name: FLORA : 1950 Patient #: [id number] Age: 68 year(s) Race: Unknown Additional ID: [id number] Contact details Address: [address] [place] [address] State: [place] City: [place] Zip code: [address] Past Medical History Allergies: No known allergies Admission Admission Data Admission Date: 09/30/2018 Admission Time: 14:42 Room #: [facility] Procedure Procedure Types Cath Procedure Diagnostic Procedure LHC LHC w/Coronaries FFR/IVUS Intra-Coronary IVUS Initial Intra-Coronary IVUS Additional Aortic Root Angiography PCI Procedure Coronary Stent Coronary Stent Initial x2 Procedure Description Procedure Date Procedure Date: 09/30/2018 Procedure Start Time: 15:30 Procedure End Time: 16:02 Procedure Staff Name Function Scott Tomas MD Performing Physician Juvenal Cabrera RT Monitor Alyce Mayo RT Scrub Mesfin Cortes RN Nurse Procedure Data Cath Procedure Fluoroscopy Diagnostic fluoroscopy Total fluoroscopy Time: 8 time: 8 min min Diagnostic fluoroscopy Total fluoroscopy dose: dose: 1543 mGy 1543 mGy Contrast Material Contrast Material Type Amount (ml) Isovue 300 214 Entry Location Entry Primary Successful Side Size Upsize Upsize Entry Closure Succes sful Closure Location (Fr) 1 (Fr) 2 (Fr) Remarks Device Remarks Femoral Left 6 Fr Exoseal artery Short Diagnostic catheters Device Type Used For End Catheter Placement Medtronic Dexterity 5Fr Right Coronary 3DRC catheter (NO COST Angiography SUPPLY) DIAGNOSTIC Pigtail 5Fr LV Angiography catheter ([id number]) Procedure Complications No complications Procedure Medications Medication Administration Route Dosage Effient P.O. 60 mg Fentanyl I.V. 50 mcg Versed I.V. 1 mg Oxygen etCO2 Nasal cannula 2 l/min Heparin Flush Bag added to field 2 bags (1000units/500ml NS) 0.9% NaCl I.V. 100 ml/hr Lidocaine 2% added to field 20 Heparin Bolus I.V. 4000 units Lopressor I.V. 5 mg Fentanyl I.V. 50 mcg Versed I.V. 1 mg Hemodynamics Rest Heart Rate: 107 (bpm) Snapshots Pre Cath Intra NCS Post Cath Vital Signs Time Heart Resp SPO2 etCO2 NIBP (mmHg) Rhythm Pain Sedation Rate (ipm) (%) (mmHg) Status Level (bpm) 15:25:24 102 16 95 0 140/77(107) NSR 0 (11) 10(A) , No pain 15:29:36 102 17 94 0 132/82(113) NSR 0 (11) 10(A) , No pain 15:33:46 98 17 97 0 120/78(98) NSR 0 (11) 9(A) , No pain 15:37:54 101 17 97 0 126/75(103) NSR 0 (11) 9(A) , No pain 15:42:02 100 18 96 0 130/79(105) NSR 0 (11) 9(A) , No pain 15:46:11 89 21 98 0 133/80(106) NSR 0 (11) 9(A) , No pain 15:50:22 86 19 98 0 138/83(109) NSR 0 (11) 9(A) , No pain 15:54:31 89 21 99 0 133/87(114) NSR 0 (11) 9(A) , No pain 15:58:02 91 20 98 0 131/85(107) NSR 0 (11) 9(A) , No pain 16:02:12 91 19 97 0 130/84(107) NSR 0 (11) 9(A) , No pain Medications Time Medication Route Dose Verified Delivered Reason Notes Effectiveness by by 15:30:57 Effient P.O. 60 mg Scott Toure for Genoveva Cortes RN antiplatelet therapy 15:31:03 Fentanyl I.V. 50 Scott Toure for sedation mcg Genoveva Cortes RN 15:31:10 Versed I.V. 1 mg Scott Mesfin for sedation Genoveva Cortes RN 15:38:40 Oxygen etCO2 2 Scott Mesfin Per physician Nasal l/min Genoveva Cortes RN cannula 15:38:48 Heparin Flush added 2 Scott Mesfin used for Bag to bags Genoveva Cortes RN procedure (1000units/500ml field NS) 15:38:56 0.9% NaCl I.V. 100 Scott Mesfin Per physician ml/hr Genoveva Cortes RN 15:39:06 Lidocaine 2% added 20ml Scottsubha Javiery used for to vial Genoveva Cortes RN procedure field 15:42:23 Heparin Bolus I.V. 4000 Scott Mesfin for units Genoveva Cortes RN anticoagulation 15:42:36 Lopressor I.V. 5 mg Scott Javiery for arrhythmia Genoveva Cortes RN 15:55:38 Fentanyl I.V. 50 Scott Mesfin for sedation mcg Genoveva Cortes RN 15:55:43 Versed I.V. 1 mg Scott Javiery for sedation Genoveva Cortes RN Procedure Log Time Note 15:10:06 Juvenal Parksit RT(R) sent for patient. Start room use. 15:18:07 Time tracking: Regular hours (M-F 7:00 - 5:00) 15:18:11 Plan of Care:Hemodynamics will remain stable., Cardiac rhythm will remain stable., Comfort level will be maintained., Respiratory function will remain adequate., Patient/ family verbilizes understanding of procedure., Procedure tolerated without complication., Recovers from procedure without complications.. 15:21:43 Patient received from ED to CCL 2 Alert and oriented. Tansferred to table in Supine position. 15:21:51 Warm blankets applied, and rosalie hugger turned on for patient comfort. 15:21:51 Correct patient and procedure confirmed by team. 15:21:53 Signed procedure consent form obtained from patient. 15:21:54 ECG and BP/O2 sat monitors applied to patient. 15:21:55 Pre-procedure instructions explained to patient. 15:21:56 Pre-op teaching completed and patient verbalized understanding. 15:22:00 H&P Date Dictated: 09/30/2018 ER History on chart., New H&P dictated by physician.. 15:22:11 Family in waiting room. 15:22:13 Patient NPO since Breakfast. 15:22:19 Patient allergic to No known allergies 15:22:20 Is the patient allergic to Iodine/contrast media? No. 15:22:22 Is patient on blood thinner?Yes 15:22:27 Patient diabetic? No. 15:22:29 Previous problem with sedation/anesthesia? No ? 15:22:30 Snore? Yes 15:22:31 Sleep apnea? No 15:22:32 Deviated septum? No 15:22:32 Opens mouth fully? Yes 15:22:33 Sticks out tongue? Yes 15:22:34 Airway obstruction? No ? 15:22:36 Dentures? No ? 15:22:40 Pre procedure: left dorsailis pedis pulse 2+ Normal; easily identifiable; not easily obliterated 15:22:42 Patient pain scale 0/10 ?. 15:22:47 IV patent on arrival in left antecubital with 0.9% NaCl at [facility]. 15:23:27 Lab results completed and on chart. 15:23:40 Left groin area was prepped with chlora-prep and draped in sterile fashion 15:23:41 Alarms reviewed by R. N. 15:23:42 Sharps counted by scrub and verified by R.N. 15:23:44 Use device set Femoral Dx 15:23:45 ACIST Syringe (00279) opened to sterile field. 15:23:45 Bag Decanter (2002S) opened to sterile field. 15:23:45 Medline Cath Pack ([id number]) opened to sterile field. 15:23:46 ACIST Hand Control (88000) opened to sterile field. 15:23:47 ACIST Manifold (41384) opened to sterile field. 15:23:47 DIAGNOSTIC Multipack 5Fr catheter set ([id number]) opened to sterile field. 15:23:49 Tegaderm 4 x 4 (1626W) opened to sterile field. 15:23:50 DIAGNOSTIC WIRE .035 260cm J wire (294594) opened to sterile field. 15:24:08 CHOICE PT Extra Support 182cm wire ([id number]) opened to sterile field. 15:24:09 INFLATOR Merit BasixCompak (ZK0719) opened to sterile field. 15:24:10 SHEATH 6FR [place] (VEG836) opened to sterile field. 15:24:19 Vital chart was started 15::21 Baseline sample Acquired. 15::24 Rhythm: sinus tachycardia 15:: Full Disclosure recording started 15::50 Physician arrived 15::50 --------ALL STOP TIME OUT------ 15::51 Final Timeout: patient, procedure, and site verified with staff and physician. All members of the team are in agreement. 15::52 Left groin site verified by team. 15::55 Physical assessment completed. ASA score P 2 - A patient with mild systemic disease as per Scott Tomas MD. 15::59 Sedation plan: IV Moderate Sedation Medication:Versed, Fentanyl 15::19 GUIDE 6FR XBLAD 4.0 catheter ([id number]) opened to sterile field. 15:30:23 Procedure started. 15::54 Local anesthetic to left femerol artery with Lidocaine 2% by Scott Tomas MD.INITIAL ACCESS ONLY 15::57 Effient 60 mg P.O. was administered by Mesfin Cortes RN; for antiplatelet therapy; 15:31:01 A 6 Fr Short sheath was inserted into the Left Femoral artery 15::03 Fentanyl 50 mcg I.V. was administered by Mesfin Cortes RN; for sedation; 15:31:10 Versed 1 mg I.V. was administered by Mesfin Cortes RN; for sedation; 15:31:12 6 Fr xblad 4 guide catheter was inserted over the wire 15::16 Zero performed for pressure channel P1 15:31:20 Zero performed for pressure channel P1 15::23 Zero performed for pressure channel P1 15:31:27 Zero performed for pressure channel P1 15:31:32 Zero performed for pressure channel P1 15:31:35 Zero performed for pressure channel P1 15::37 Zero performed for pressure channel P1 15:31:40 Zero performed for pressure channel P1 15:31:43 Zero performed for pressure channel P1 15:31:46 Zero performed for pressure channel P1 15:31:50 Zero performed for pressure channel P1 15:31:58 Zero performed for pressure channel P1 15:32:07 Zero performed for pressure channel P1 15:37:00 LCA angiography performed. 15:37:03 Catheter removed. 15:37:25 A American TeleCaretronic Dexterity 5Fr 3DRC catheter (NO COST SUPPLY) was advanced over the wire and used for Right Coronary Angiography. 15:37:40 RCA angiography performed. 15:37:41 Catheter removed. 15:37:54 A DIAGNOSTIC Pigtail 5Fr catheter ([id number]) was advanced over the wire and used for LV Angiography. 15:38:02 LV angiography performed. 15:38:40 Oxygen 2 l/min etCO2 Nasal cannula was administered by Mesfin Cortes RN; Per physician; 15:38:48 Heparin Flush Bag (1000units/500ml NS) 2 bags added to field was administered by Mesfin Cortes RN; used for procedure; 15:38:56 0.9% NaCl 100 ml/hr I.V. was administered by Mesfin Cortes RN; Per physician; 15:39:04 LV gram done using GAR 15:39:06 Lidocaine 2% 20ml vial added to field was administered by Mesfin Cortes RN; used for procedure; 15:39:06 LV angiography performed. 15:39:19 Aortic Root visualized 15:40:02 Catheter removed. 15:40:19 6 Fr XBLAD 3.5 guide catheter was inserted over the wire 15:40:28 CPTES wire advanced. 15:40:35 FFR/IVUS 15:40:35 IVUS catheter advanced over wire. 15:42:23 Heparin Bolus 4000 units I.V. was administered by Mesfin Cortes RN; for anticoagulation; 15:42:36 Lopressor 5 mg I.V. was administered by Mesfin Cortes RN; for arrhythmia; 15:43:39 IVUS pass to Circ lesion performed. 15:45:21 Procedure type changed to Cath procedure, Diagnostic procedure, LHC, LHC w/Coronaries, FFR/IVUS, Intra-Coronary IVUS Initial, Intra-Coronary IVUS Additional, Aortic Root Angiography, PCI procedure, Coronary Stent, Coronary Stent Initial x2 15:45:25 IVUS catheter removed over wire. 15:45:35 GUIDE 6FR XBLAD 3.5 catheter ([id number]) opened to sterile field. 15:46:24 Place stent Inflation Number: 1 A INTEGRITY RX 3.5 x 30 stent ([id number]) was prepped and advanced across the Prox CX. The stent was deployed at 19 JORGE for 0:09 (min:sec). 15:47:26 Stent catheter was removed intact over wire. 15:48:09 Inflate balloon Inflation number: 2 A INTEGRITY RX 3.5 x 15 stent ([id number]) was prepped and advanced across the Prox CX, then inflated to 17 JORGE for 0:13 (min:sec). 15:48:25 Stent catheter was removed intact over wire. 15:50:56 FFR/IVUS 15:50:56 IVUS catheter advanced over wire. 15:50:58 IVUS pass to LAD lesion performed. 15:51:04 IVUS catheter removed over wire. 15:52:25 Place stent Inflation Number: 1 A INTEGRITY RX 4.0 x 15 stent ([id number]) was prepped and advanced across the Prox LAD. The stent was deployed at 13 JORGE for 0:10 (min:sec). 15:52:51 Inflation number: 2 The stent balloon was then re-inflated across the Prox LAD to 13 JORGE for 0:22 (min:sec). 15:53:03 Stent catheter was removed intact over wire. 15:53:04 Wire removed. 15:53:06 Guide catheter removed. 15:53:13 Contrast amount:Isovue 300 214ml. 15:53:19 Sheath removed intact; hemostasis achieved with Exoseal to the Left Femoral artery. 15:53:21 Procedure ended.(Physican Out) 15:55:38 Fentanyl 50 mcg I.V. was administered by Mesfin Cortes RN; for sedation; 15:55:43 Versed 1 mg I.V. was administered by Mesfin Cortes RN; for sedation; 15:58:19 Fluoroscopy time 08.00 minutes. 15:58:25 Flurop Dose total: 1543 15:58:25 Fluoroscopy dose: 1543 mGy 15:58:26 Sharps counted by scrub and verified by R.N. 15:58:27 Insertion/operative site no bleeding no hematoma. 15:58:30 Post-op/insertion site Left Femoral artery dressed using a 4 x 4 and Tegaderm. 15:58:39 EXOSEAL 6Fr (EX600) opened to sterile field. 15:58:47 Post Procedure Pulses reassessed and unchanged 15:58:49 Post procedure: left dorsailis pedis pulse 2+ Normal; easily identifiable; not easily obliterated. 15:58:53 Post procedure rhythm: sinus rhythm 15:58:55 Post procedure instruction explained to patient.Patient verbalizes understanding. 15:58:55 Procedure and supply charges have been captured, reviewed, submitted and are correct. 16:02:08 Procedure Complication : No complications 16:02:13 Vital chart was stopped 16:02:14 See physician's report for complete and final results. 16:02:15 Report given to CVICU. 16:02:19 Patient transfered to CVICU with Bed. 16:02:21 Procedure ended. 16:02:21 Full Disclosure recording stopped 16:02:34 ACC-PCI Only Patient was given prescriptions, or instructed by Scott Tomas MD to start/continue the following medications upon discharge: Effient 16:02:35 End room use (Document Last) Intervention Summary Intervention Notes Time ActionType Lesion and Equipment Action# Pressure Duration Attributes Used 15:46:24 Place stent Prox CX INTEGRITY RX 1 19 00:09 3.5 x 30 stent ([id number]) 15:48:09 Inflate Prox CX INTEGRITY RX 2 17 00:13 balloon 3.5 x 15 stent ([id number]) 15:52:25 Place stent Prox LAD INTEGRITY RX 1 13 00:10 4.0 x 15 stent ([id number]) 15:52:51 Reinflate Prox LAD INTEGRITY RX 2 13 00:22 stent 4.0 x 15 balloon stent ([id number]) Device Usage Item Name Manufacture Quantity Catalog Number Hospital Part Current Mini [facility] Lot# / Charge Number Stock Stock Serial# Code ACIST Acist 1 97580 650216 204522 973199 20 Syringe Medical (08956) Systems Inc Bag Decanter Microtek 1 372323 03058 387780 5 () Medical Inc. Medline Cath Medline 1 [id number] 421559 68149 901225 5 Pack ([id number]) ACIST Hand Acist 1 05090 618764 797385 375055 5 Control Medical (48346) Systems Inc ACIST Acist 1 74779 338915 451739 689351 5 Manifold Medical (04367) Systems Inc DIAGNOSTIC Cardinal 1 SZ9988 365363 09201 312703 30 Multipack Health 5Fr catheter set (WW1014) Tegaderm 4 x 3M 1 1626W 605250 217777 050045 5 4 (1626W) DIAGNOSTIC St Robbi 1 377501 862265 917464 454969 30 WIRE .035 260cm J wire (236247) CHOICE PT Taylor 1 [id number] 353207 999838 456905 5 Extra Scientific Support 182cm wire (6972412O7) INFLATOR Merit 1 EQ3972 452242 087941 208373 15 [facility] Medical BasixCompak (KL2136) SHEATH 6FR Terumo 1 WXK181 755090 898682 952545 40 [place] (CSI784) GUIDE 6FR Cardinal 1 74637358 509835 750246 490182 3 XBLAD 4.0 Health catheter (09492914) Medtronic Medtronic 1 [id number] 994184 035761 5 Dexterity 5Fr 3DRC catheter (NO COST SUPPLY) DIAGNOSTIC Cardinal 1 [id number] 866723 736625 854267 5 Pigtail 5Fr Health catheter (970219N) GUIDE 6FR Cardinal 1 [id number] 503545 157146 532686 10 XBLAD 3.5 Health catheter (28877311) INTEGRITY RX Medtronic 1 [id number] 223786 954485 977209 5 [id number] 3.5 x 30 stent ([id number]) INTEGRITY RX Medtronic 1 [id number] 203464 170088 920345 5 [id number] 3.5 x 15 stent ([id number]) INTEGRITY RX Medtronic 1 [id number] 181934 040381 977409 5 [id number] 4.0 x 15 stent ([id number]) EXOSEAL 6Fr Cardinal 1 EX600 020871 025694 130921 10 (EX600) Health Signature Audit Cashion Stage Time Signature Unsigned Intra-Procedure 09/30/2018 Juvenal COOLEY(Korey) 4:06:46 PM Signatures Monitor : Juvenal Cabrera RT Signature : Date : Time : [facility] [address] [place] [address]
[~2018-09-30 13:50] MED LIST: COZAAR100 MG PO; COZAAR25 MG PO
[2018-09-30 14:25] LABS: ALBUMIN 3.6 g/dL (3.4-5.0); ALKALINE PHOSPHATASE 103 U/L (46-116); BILIRUBIN - TOTAL 0.39 mg/dL (0.2-1.3); CHLORIDE - SERUM 106 mmol/L (98-107); CREATININE - SERUM 1.2 mg/dL (0.6-1.3); PROTEIN - SERUM 7.6 g/dL (6.4-8.2); SODIUM 144 mmol/L (136-145); eGFR NON AFRICAN AMERICAN 64 mL/min (90-120)
[2018-09-30 14:26] LABS: ALT (SGPT) 49 U/L (10-68); CALC OSMOLALITY 286 mosm/kg (275-300); CARBON DIOXIDE 25.7 mmol/L (21.0-32.0); GLUCOSE 96 mg/dL (74-106); POTASSIUM - SERUM 3.6 mmol/L (3.5-5.1); UREA NITROGEN 13 mg/dL (7-18)
[2018-09-30 14:27] LABS: APTT 30.5 SECONDS (22.8-39.4); BASOPHILS 0.2 % (0-2); EOSINOPHILS 1.2 % (0-7); HEMATOCRIT 47.1 % (42.0-54.0); HEMOGLOBIN 15.8 g/dL (13.5-17.5); IMMATURE GRANULOCYTES 0.3 % (0-5); INR 1.09 (0.85-1.17); LYMPHOCYTES 21.1 % (15-50); MCH 28.1 pg (26.0-34.0); MCHC 33.5 g/dL (31.0-37.0); MCV 83.8 fL (80.0-100.0); MEAN PLATELET VOLUME 10.7 fL (7.4-10.4); MONOCYTES 10.5 % (2-11); NEUTROPHILS 66.7 % (40-80); PLATELET COUNT 234 10x3/uL (130-400); PROTIME 13.6 SECONDS (11.6-15.0); RBC 5.62 10x6/uL (4.20-6.10); RDW 14.3 % (11.5-14.5); WBC 12.9 10x3/uL (4.8-10.8)
[2018-09-30 14:42] LABS: CKMB 227.1 U/L (0.0-3.6); MAGNESIUM - SERUM 2.1 mg/dL (1.8-2.4)
[2018-09-30 14:46] LABS: CREATINE KINASE 1029 UL (21-232)
[2018-09-30 14:47] LABS: TROPONIN-I 32.295 ng/mL (0.000-0.060)
--- NOTE | 2018-09-30 17:22 | MORECARE ---
CASE MANAGEMENT DISCHARGE SUMMARY PATIENT: TASIA HINES UNIT: [id number] ADM DATE: 09/30/18 AGE: 68 : 50 SEX: M [facility] AUTHOR: JOSE VILLEDA PHYSICIAN: REFERRING PHYSICIAN: AZEEM NARAYANAN MD DATE OF SERVICE: 09/30/18 Discharge Plan Patient Name: TASIA HINES [facility] [facility] 1950 Planned Disposition: Home Anticipated Discharge Date: Discharge Date: Expected LOS: Initial Reviewer: [email or web address] Initial Review Date: 09/30/2018 Generated: 09/30/18 6:22 pm DCPIA - Discharge Planning Initial Assessment Updated by [email or web address]: Mary Carmen Walker on 09/30/18 5:20 pm * Is the patient Alert and Oriented? Yes * How many steps to enter\exit or inside your home? * PCP VERSER * Pharmacy [facility] * Preadmission Environment Home with Family * ADLs Independent * Equipment None * List name and contact numbers for known caregivers / representatives who currently or will assist patient after discharge: LOTTIE HINES -SON- [phone] * Verbal permission to speak to the caregivers and representatives has been obtained from the patient. No * Community resources currently utilized None * Additional services required to return to the preadmission environment? No * Can the patient safely return to the preadmission environment? Yes * Has this patient been hospitalized within the prior 30 days at any hospital? Yes Patient Name: TASIA HINES Page 15329 at 1722 All edits/amendments must be made on the electronic document DICTATION DATE: 09/30/181721 LIVE TRUCK OPERATOR: GRETTA 09/30/181721 RPT#: [id number] DC DATE: STATUS: ADM IN [facility] [address] [place] [address] END OF REPORT
--- NOTE | 2018-09-30 17:30 | MORECARE ---
CASE MANAGEMENT DISCHARGE SUMMARY PATIENT: TASIA HINES UNIT: [id number] ADM DATE: 09/30/18 AGE: 68 : 50 SEX: M ROOM/BED: D[facility] AUTHOR: CHRISTIANA,DOC PHYSICIAN: REFERRING PHYSICIAN: AZEEM NARAYANAN MD DATE OF SERVICE: 09/30/18 Discharge Plan Patient Name: TASIA HINES Facility: [facility]:[place] : 1950 Planned Disposition: Home Anticipated Discharge Date: Discharge Date: Expected LOS: Initial Reviewer: [email or web address] Initial Review Date: 09/30/2018 Generated: 09/30/18 6:30 pm Comments DCP- Discharge Planning Updated by [email or web address]: Mary Carmen Walker on 09/30/18 4:[address] Patient Name: TASIA HINES Admission Status: ER Accout number: [id number] Admission Date: 09-30-2018 : 1950 Admission Diagnosis: Attending: SAIRA NARAYANAN Current LOS: 1 Anticipated DC Date: Planned Disposition: Home Primary Insurance: [employer] Discharge Planning Comments: CM met with patient and spouse at bedside after obtaining verbal consent. Patient states he plans on returning home after discharge with his . Patient states he will have family transport him home via private vehicle. Patient denies any discharge needs at this time. CM will continue to follow and assist as needed for discharge planning / needs. Simplex Operator: Mary Carmen Walker DCPIA - Discharge Planning Initial Assessment Updated by [email or web address]: Mary Carmen Walker on 09/30/18 5:20 pm * Is the patient Alert and Oriented? Yes * How many steps to enter\exit or inside your home? * PCP VERSER * Pharmacy [facility] * Preadmission Environment Home with Family * ADLs Independent * Equipment None * List name and contact numbers for known caregivers / representatives who currently or will assist patient after discharge: LOTTIE HINES -SON- [phone] * Verbal permission to speak to the caregivers and representatives has been obtained from the patient. No * Community resources currently utilized None * Additional services required to return to the preadmission environment? No * Can the patient safely return to the preadmission environment? Yes * Has this patient been hospitalized within the prior 30 days at any hospital? Yes Last DP export: 09/30/18 4:22 p Patient Name: TASIA HINES Page 92519 at 1730 All edits/amendments must be made on the electronic document DICTATION DATE: 09/30/181728 PIZZA HUT ASSISTANT: GRETTA 09/30/181728 RPT#: [id number] DC DATE: STATUS: ADM IN [facility] [address] [place] [address] END OF REPORT
--- NOTE | 2018-09-30 18:37 | HP ---
PATIENT: TASIA HINES MEDICAL RECORD: [id number] ACCOUNT: [id number] LOCATION:[facility] : [birth year] ADMISSION DATE: 09/30/18 PCP: No PCP HISTORY AND PHYSICAL EXAMINATION ADMITTING DIAGNOSES: 1. Acute myocardial infarction with percutaneous transluminal coronary angioplasty stent of left anterior descending yesterday. 2. Recurrent chest pain. 3. Musculoskeletal neck pain. 4. Coronary artery disease. 5. Hypertension. 6. Hyperlipidemia. HISTORY OF PRESENT ILLNESS: Herman presented yesterday with an acute anterior myocardial infarction, underwent PTCA stent of the LAD and LAD diagonal. He has concomitant disease of the circumflex and right coronary artery. He was traveling home from the hospital today and got acute onset of chest pain. He has complicating factor of neck pain, rated as definitely musculoskeletal. It was positional. It radiates down into his chest. He is not sure exactly what he is having, his pain is quite severe. There is a positional component to it and then there is a nonpositional component to it. PHYSICAL EXAMINATION: GENERAL APPEARANCE: Well-nourished, well-developed, appears stated age. Level of distress, comfortable. PSYCHIATRIC: Mental status, alert, normal affect. Orientation, oriented to time, place and person. EYES: Lids and conjunctiva, noninjected. No discharge, no pallor. ENT: Lips, teeth, gums, normal dentition. Oropharynx, no cyanosis, no pallor. NECK: Carotid arteries, bilateral normal upstroke, no bruits, no thrills. JUGULAR VEINS: No jugular venous pressure or distention. CERVICAL LYMPH NODES: Nontender, nonenlarged. THYROID: Not enlarged. Nontender. No nodules. LUNGS: Respiratory effort, unlabored. CHEST: Normal curvature. No thoracic deformity. No chest wall tenderness. Percussion, resonant. Auscultation, clear. No wheezes, no rales, no rhonchi. CARDIOVASCULAR: Precordial exam, nondisplaced. No heaves or pericardial thrills. Rate and rhythm, regular. Heart sounds, normal S1, normal S2. No S3, no gallop, no rub. Systolic murmur, not heard. Diastolic murmur, not heard. EXTREMITIES: No cyanosis, no edema. Peripheral pulses, full and equal in all extremities, except as noted. No bruits appreciated. ABDOMEN: Soft, nondistended. Normal aorta. No bruit. Nontender. No masses. Liver, nontender, no hepatomegaly. Spleen, nontender, no splenomegaly. MUSCULOSKELETAL: No joint tenderness. No joint swelling. No erythema. NEUROLOGICAL: Normal gait, normal strength, normal tone. SKIN: Warm and dry. OVERALL IMPRESSION: Acute chest pain. EKG is with no overt ST elevation, but he is very uncomfortable with the pain. We will proceed with repeat coronary angiography. Further care depends upon the findings of the angiography. TRANSINT:[id number] Voice Confirmation ID: [id number] DOCUMENT ID: [id number] HISTORY AND PHYSICAL [id number] TASIA HINES JEFFREY MD at 1837 CC: [id number] DICTATION DATE: 09/30/18 160 FERMENTING CELLAR DROPPER: 09/30/18 1714 ADM IN [facility] [address] [place] [address]
[2018-10-01] VITALS (18 sets, daily range): BP systolic 95–120; BP diastolic 51–74
[2018-10-01] MEDS ORDERED: PLAVIX75 MG PO (02:07)
[2018-10-01] MEDS ORDERED: PRAVACHOL20 MG PO (02:07)
[2018-10-01] MEDS ORDERED: TOPROL XL50 MG PO (02:09)
[2018-10-01] MEDS ORDERED: BAYER CHEWABLE81 MG PO (02:14)
[2018-10-02] VITALS: BP 108/66
[2018-10-02 04:55] VITALS: BP 108/65
[2018-10-02 08:12] VITALS: BP 104/63
[2018-10-02 11:52] VITALS: BP 98/59
[2018-10-02] MEDS ORDERED: EFFIENT10 MG PO (12:38)
--- NOTE | 2018-10-02 15:06 | MORECARE ---
CASE MANAGEMENT DISCHARGE SUMMARY PATIENT: TASIA HINES UNIT: [id number] ADM DATE: 09/30/18 AGE: 68 : [birth year] SEX: M ROOM/BED: D.7185 AUTHOR: CHRISTIANA,DOC PHYSICIAN: REFERRING PHYSICIAN: AZEEM NARAYANAN MD DATE OF SERVICE: 10/02/18 Discharge Plan Patient Name: TASIA HINES Facility: [facility]:[place] : 1950 Planned Disposition: Home Anticipated Discharge Date: 10/02/18 Discharge Date: 10/02/2018 Expected LOS: 2 Initial Reviewer: [email or web address] Initial Review Date: 09/30/2018 Generated: 10/02/18 4:06 pm DCP- Discharge Planning Updated by [email or web address]: Mary Carmen Walker on 09/30/18 4:[address] Patient Name: TASIA HINES Admission Status: ER Accout number: [id number] Admission Date: 09-30-2018 : 1950 Admission Diagnosis: Attending: SAIRA NARAYANAN Current LOS: 1 Anticipated DC Date: Planned Disposition: Home Primary Insurance: Taxi 24/7 Discharge Planning Comments: CM met with patient and spouse at bedside after obtaining verbal consent. Patient states he plans on returning home after discharge with his . Patient states he will have family transport him home via private vehicle. Patient denies any discharge needs at this time. CM will continue to follow and assist as needed for discharge planning / needs. Doll Surgeon: Mary Carmen Walker DCPIA - Discharge Planning Initial Assessment Updated by [email or web address]: Mary Carmen Walker on 09/30/18 5:20 pm * Is the patient Alert and Oriented? Yes * How many steps to enter\exit or inside your home? * PCP [facility] * Pharmacy [facility] * Preadmission Environment Home with Family * ADLs Independent * Equipment None * List name and contact numbers for known caregivers / representatives who currently or will assist patient after discharge: LOTTIE HINES -SON- [phone] * Verbal permission to speak to the caregivers and representatives has been obtained from the patient. No * Community resources currently utilized None * Additional services required to return to the preadmission environment? No * Can the patient safely return to the preadmission environment? Yes * Has this patient been hospitalized within the prior 30 days at any hospital? Yes Last DP export: 09/30/18 4:30 p Patient Name: TASIA HINES Page 24787 at 1506 All edits/amendments must be made on the electronic document DICTATION DATE: 10/02/18 1506 CONTOUR STITCHER: GRETTA 10/02/18 1506 RPT#: [id number] DC DATE:10/02/18 STATUS: DIS IN [facility] [address] [place] [address] END OF REPORT
--- NOTE | 2018-10-02 18:15 | OP ---
PATIENT NAME: TASIA HINES MEDICAL RECORD: [id number] :[birth year] LOCATION:D.M2 D.2125 ADMISSION DATE:09/30/18 SURGEON: AZEEM NARAYANAN MD DATE OF OPERATION: 09/30/2018 PROCEDURES: 1. PTCA and stent, LAD. 2. PTCA and stent, left circumflex. 3. Intravascular ultrasound of the LAD. 4. Intravascular ultrasound of the left circumflex. 5. Left heart catheterization. 6. Selective coronary angiography. 7. Left ventriculogram. INDICATIONS: Angina and coronary artery disease. PROCEDURE IN DETAIL: After informed consent was obtained with detailed description of risks and benefits as well as alternative therapies, the patient elected to proceed with angiogram and angioplasty. The left femoral area was prepped and draped in normal sterile fashion. The left femoral artery was cannulated via modified Seldinger technique with placement of 6-Turkish sheath. All catheters were exchanged through this sheath. FINDINGS: 1. The left ventriculogram performed in standard 30-degree GAR view reveals good cardiac wall motion throughout all segments. Overall ejection fraction is estimated at 60%. 2. Aortic root angiography was performed. There is no evidence of acute dissection. 3. Left anterior descending has wide patency of the previously placed stents in the LAD and diagonal. The intravascular ultrasound however reveals there is 75% stenosis proximal to the previously placed stent in the proximal LAD. 4. Left circumflex has greater than 75% stenosis throughout from the proximal aspect, confirmed by intravascular ultrasound. 5. Right coronary has 70% to 80% stenosis proximally, 90% stenosis of the PDA. This is unchanged from previous angiography as is the circ. PTCA AND STENT OF THE LEFT CIRCUMFLEX: Stents used were 3.5 x 30 and 3.5 x 15 both Integrity stents. Result was 0% residual stenosis. PTCA AND STENT OF THE PROXIMAL LAD: The stent used was 4.0 x 15 mm Integrity. Result was 0% residual stenosis. OVERALL IMPRESSION: Successful PTCA and stents of LAD and circumflex, both going from 75% initial stenosis to 0% residual stenosis. TRANSINT:[id number] Voice Confirmation ID: [id number] DOCUMENT ID: [id number] OPERATIVE REPORT [id number] TASIA HINES AZEEM NARAYANAN MD at 8462 CC: [id number] DICTATION DATE: 09/30/18 1604 TAR POT MAN: 09/30/181916 DIS IN 10/02/18 [facility] [address] [facility]
--- NOTE | 2018-10-10 12:11 | DS ---
PATIENT:TASIA HINES :50 MEDICAL RECORD: [id number] DISCHARGE SUMMARY ADMISSION DATE: 09/30/18 DISCHARGE DATE: 10/02/18 DIAGNOSES: 1. Angina. 2. Coronary artery disease. 3. Percutaneous transluminal coronary angioplasty stent of left circumflex on this admission. HOSPITAL COURSE: This is a gentleman who presents with recurrent chest pain, underwent successful PTCA stent of the circumflex, recently underwent PTCA stent of the LAD, he had no further anginal symptomatology on this admission. Discharged home to follow up Saturday for PTCA stent of the RCA as previously scheduled and discharged on Effient 10 mg day. TRANSINT:[id number] Voice Confirmation ID: [id number] DOCUMENT ID: [id number] AZEEM NARAYANAN MD at 1211 CC: [id number] DICTATION DATE: 10/02/18 1205 NIGHT CLERK: 10/03/18 0358 DIS IN 10/02/18 [place] [id number] [place] [id number]
== END 2018-10-02 13:19 | disposition home or self-care (01) | DRG 249 ==
LOC: OBSVTIME → D.ER 13:50 → D.CVICU 14:24 → D.M2 14:42 → D.EDHOLD 14:42 → D.ER 14:42 → D.CVICU 14:42 → OBSVTIME 14:42 → D.EDHOLD 15:06 → D.CVICU 15:06 → D.M2 10-01 14:26 → D.CVICU 10-01 14:26 → D.M2 10-02 13:19
PROVIDERS: Family Medicine; ADMIT Internal Medicine Interventional Cardiology
PROC: 02713FZ Dilation of Coronary Artery, Two Arteries with Three Intraluminal Devices, Percutaneous Approach (ICD-10-PCS; principal; 2018-09-30 15:30)
PROC: B241ZZ3 Ultrasonography of Multiple Coronary Arteries, Intravascular (ICD-10-PCS; 2018-09-30 15:30)
DX: I25.119 Atherosclerotic heart disease of native coronary artery with unspecified angina pectoris (principal)

== ENCOUNTER 2018-10-06 08:18 | Outpatient (CLI) | payer MEDICARE ==
[~2018-10-06] VITALS: Ht 170.2 cm; Wt 76.4 kg
--- NOTE | ~2018-10-06 | HEMODYNAMI ---
PATIENT:TASIA HINES MEDICAL RECORD: [id number] : 50 LOCATION:[facility] ADMISSION DATE: 10/06/18 Generatedon:10/06/201810:59 Patient name: TASIA HINES Patient #: [id number] SSN: : 1950 Date of study: 10/06/2018 Page: Of Hemodynamic Procedure Report Patient Data Patient Demographics Procedure consent was obtained First Name: TASIA Gender: Male Last Name: FLORA : 1950 Patient #: [id number] Age: 68 year(s) Race: Additional ID: [id number] Contact details Address: [address] [place] [address] State: [place] City: [place] Zip code: [address] Past Medical History Allergies: No known allergies Admission Admission Data Admission Date: 10/06/2018 Admission Time: 8:18 Height (in.): 67 BSA: 1.88 (m2) Height (cm.): 170.18 BMI: 26.31 (kg/m2) Weight (lbs.): 168 Weight (kg.): 76.2 Lab Results Lab Result Date: 10/06/2018 Lab Result Time: 0:00 Biochemistry Name Units Result Min Max BUN mg/dl 13 --(--*-)-- 7 18 Creatinine mg/dl 1 --(--*-)-- 0.6 1.3 CBC Name Units Result Min Max Hemoglobin g/dl 13.3 -*(----)-- 13.5 17.5 Procedure Procedure Types Cath Procedure Diagnostic Procedure FFR/IVUS Intra-Coronary IVUS Initial PCI Procedure Coronary Stent Coronary Stent Initial Procedure Description Procedure Date Procedure Date: 10/06/2018 Procedure Start Time: 10:47 Procedure End Time: 10:58 Procedure Staff Name Function Scott Tomas MD Performing Physician Alyce Mayo RT Scrub Norm Lao RN Nurse Saad Scott RT Monitor Procedure Data Cath Procedure Fluoroscopy Diagnostic fluoroscopy Total fluoroscopy Time: 2.5 time: 2.5 min min Diagnostic fluoroscopy Total fluoroscopy dose: 277 dose: 277 mGy mGy Contrast Material Contrast Material Type Amount (ml) Isovue 300 37 Entry Location Entry Primary Successful Side Size Upsize Upsize Entry Closure Parks ccessful Closure Location (Fr) 1 (Fr) 2 (Fr) Remarks Device Remarks Radial Right 6 Fr Mechanical artery Short Compression Estimated blood loss: 10 ml Procedure Medications Medication Administration Route Dosage 0.9% NaCl I.V. 100 ml/hr Oxygen etCO2 Nasal cannula 2 l/min Heparin Flush Bag added to field 2 bags (1000units/500ml NS) Lidocaine 2% added to field 20 Radial Cocktail added to field 1 syringe (Verapomil 2mg/Nitro 400mcg/Heparin 1500units) Versed I.V. 2 mg Fentanyl I.V. 100 mcg Radial Cocktail I.A. 1 syringe (Verapomil 2mg/Nitro 400mcg/Heparin 1500units) Heparin Bolus I.V. 4000 units Hemodynamics Rest BSA: 1.88 (m2) HGB: 13.3 (g/dl) O2 Consumption: Estimated: 223.03 (ml/min) O2 Co nsumption indexed: Estimated:118.63 (ml/min/m) Heart Rate: 77 (bpm) Snapshots Pre Cath Intra NCS Post Cath Vital Signs Time Heart Resp SPO2 etCO2 NIBP (mmHg) Rhythm Pain Sedation Rate (ipm) (%) (mmHg) Status Level (bpm) 10:10:43 72 22 97 0 118/76(96) NSR 0 (11) 10(A) , No pain 10:14:49 71 21 100 28.4 118/72(98) NSR 0 (11) 10(A) , No pain 10:18:55 69 18 100 31.3 111/72(100) NSR 0 (11) 10(A) , No pain 10:22:57 73 17 100 31.3 111/74(95) NSR 0 (11) 10(A) , No pain 10:27:02 73 17 99 31.3 109/65(85) NSR 0 (11) 10(A) , No pain 10:31:06 72 18 99 31.3 109/67(90) NSR 0 (11) 10(A) , No pain 10:35:08 76 21 99 31.4 108/75(97) NSR 0 (11) 10(A) , No pain 10:39:09 73 19 100 33.6 98/72(82) NSR 0 (11) 10(A) , No pain 10:43:11 73 12 100 18.6 111/63(82) NSR 0 (11) 10(A) , No pain 10:47:15 72 15 99 20.1 106/69(83) NSR 0 (11) 10(A) , No pain 10:51:19 79 12 97 12.6 98/62(82) NSR 0 (11) 9(A) , No pain 10:55:20 73 17 94 29.8 94/63(80) NSR 0 (11) 9(A) , No pain Medications Time Medication Route Dose Verified Delivered Reason Not es Effectiveness by by 10:16:44 0.9% NaCl I.V. 100 Norm Norm Per physician ml/hr Tashia Lao RN RN 10:16:59 Oxygen etCO2 2 l/min Norm Norm Per physician Nasal Tashia Lao cannula RN RN 10:17:12 Heparin Flush added 2 bags Norm Norm used for Bag to Lorigan Tashia procedure (1000units/500ml field RN RN NS) 10:17:25 Lidocaine 2% added 20ml Norm Norm for local to vial Lorigan Lorigan anesthetic RN RN 10:17:39 Radial Cocktail added 1 Norm Norm used for (Verapomil to syringe Lorigan Tashia procedure 2mg/Nitro RN RN 400mcg/Heparin 1500units) 10:42:59 Versed I.V. 2 mg Norm Norm for sedation Tashia Lao RN RN 10:43:09 Fentanyl I.V. 100 mcg Norm Norm for sedation Tashia Lao RN RN 10:47:06 Radial Cocktail I.A. 1 Norm Scott for (Verapomil syringe Tashia krishnan 2mg/Nitro RN 400mcg/Heparin 1500units) 10:50:39 Heparin Bolus I.V. 4000 Norm Norm for units Tashia Lao anticoagulation RN millstone cleaner Log Time Note 9:55:20 Diagnostic Cath Status : Elective 9:55:48 Norm Lao RN sent for patient. Start room use. 9:55:49 Time tracking: Regular hours (M-F 7:00 - 5:00) 9:55:54 Plan of Care:Hemodynamics will remain stable., Cardiac rhythm will remain stable., Comfort level will be maintained., Respiratory function will remain adequate., Patient/ family verbilizes understanding of procedure., Procedure tolerated without complication., Recovers from procedure without complications.. 10:08:41 Patient received from Pre/Post Procedure Room to [facility] 2 Alert and oriented. Tansferred to table in Supine position. 10:08:48 Warm blankets applied, and rosalie hugger turned on for patient comfort. 10:08:52 Correct patient and procedure confirmed by team. 10:08:54 Signed procedure consent form obtained from patient. 10:08:59 ECG and BP/O2 sat monitors applied to patient. 10:09:37 Vital chart was started 10:09:58 Baseline sample Acquired. 10:10:14 Rhythm: sinus rhythm 10:10:16 Full Disclosure recording started 10:15:09 H&P Date Dictated: 10/06/2018 New H&P dictated by physician.. 10:15:11 Pre-procedure instructions explained to patient. 10:15:11 Pre-op teaching completed and patient verbalized understanding. 10:15:16 Family in waiting room. 10:15:19 Patient NPO since Midnight. 10:15:28 Patient allergic to No known allergies 10:15:32 Is the patient allergic to Iodine/contrast media? No. 10:16:01 Is patient on blood thinner?Yes 10:16:05 ACC The patient was administered the following blood thiners within the last 24 hours: ACCEffient 10:16:09 Patient diabetic? No. 10:16:12 ----Pre-sedation anethsthesia assessment.---- 10:16:15 Previous problem with sedation/anesthesia? No ? 10:16:44 0.9% NaCl 100 ml/hr I.V. was administered by Norm Lao RN; Per physician; 10:16:59 Oxygen 2 l/min etCO2 Nasal cannula was administered by Norm Lao RN; Per physician; 10:17:12 Heparin Flush Bag (1000units/500ml NS) 2 bags added to field was administered by Norm Lao RN; used for procedure; 10:17:25 Lidocaine 2% 20ml vial added to field was administered by Norm Lao RN; for local anesthetic; 10:17:39 Radial Cocktail (Verapomil 2mg/Nitro 400mcg/Heparin 1500units) 1 syringe added to field was administered by Norm Lao RN; used for procedure; 10:18:21 Snore? Yes 10:18:22 Sleep apnea? No 10:18:25 Deviated septum? No 10:18:26 Opens mouth fully? Yes 10:18:27 Sticks out tongue? Yes 10:18:30 Airway obstruction? No ? 10:18:35 Pre procedure: right dorsailis pedis pulse 2+ Normal; easily identifiable; not easily obliterated 10:18:40 Patient pain scale 0/10 ?. 10:18:54 IV patent on arrival in left wrist with 0.9% NaCl at [facility]. 10:22:28 Lab Result : BUN 13 mg/dl 10:22:28 Lab Result : Hemoglobin 13.3 g/dl 10:22:28 Lab Result : Creatinine 1 mg/dl 10:22:32 Lab results completed and on chart. 10:22:40 Right groin area was prepped with chlora-prep and draped in sterile fashion 10:22:41 Alarms reviewed by R. N. 10:22:42 Sharps counted by scrub and verified by R.N. 10:24:10 Use device set Femoral Dx 10:24:13 ACIST Syringe (36889) opened to sterile field. 10:24:14 Bag Decanter (2001S) opened to sterile field. 10:24:16 Medline Cath Pack ([id number]) opened to sterile field. 10:24:18 DIAGNOSTIC WIRE .035 260cm J wire (659545) opened to sterile field. 10:24:19 ACIST Hand Control (83785) opened to sterile field. 10:24:20 ACIST Manifold (94148) opened to sterile field. 10:24:33 Tegaderm 4 x 4 (1626W) opened to sterile field. 10:25:41 CHOICE PT Extra Support 182cm wire ([id number]) opened to sterile field. 10:25:42 INFLATOR Merit BasixCompak (RT1475) opened to sterile field. 10:26:05 Zero performed for pressure channel P1 10:29:31 Patient Height : 67 inches 10:29:42 Patient Weight : 168 lbs 10:42:18 Physician arrived 10:42:19 --------ALL STOP TIME OUT------ 10:42:20 Final Timeout: patient, procedure, and site verified with staff and physician. All members of the team are in agreement. 10:42:22 Right groin site verified by team. 10:42:26 Physical assessment completed. ASA score P 2 - A patient with mild systemic disease as per Scott Tomas MD. 10:42:31 Sedation plan: IV Moderate Sedation Medication:Versed, Fentanyl 10:42:59 Versed 2 mg I.V. was administered by Norm Lao RN; for sedation; 10:43:09 Fentanyl 100 mcg I.V. was administered by Norm Lao RN; for sedation; 10:46:01 Procedure started. 10:46:39 SHEATH 6FR Slender (80-2980) opened to sterile field. 10:47:02 GUIDE 6FR AR 2.0 SH catheter ([id number]) opened to sterile field. 10:47:06 Radial Cocktail (Verapomil 2mg/Nitro 400mcg/Heparin 1500units) 1 syringe I.A. was administered by Scott Tomas MD; for vasodilation; 10:47:15 Local anesthetic to right radial artery with Lidocaine 2% by Scott Tomas MD.INITIAL ACCESS ONLY 10:47:17 A 6 Fr Short sheath was inserted into the Right Radial artery 10:47:55 6 Fr AR 2 SH guide catheter was inserted over the wire 10:48:29 [place] IVUS Catheter (77580P) opened to sterile field. 10:49:03 CHOICE wire advanced. 10:49:18 Wire advanced across lesion. 10:50:13 Procedure type changed to Cath procedure, Diagnostic procedure, FFR/IVUS, Intra-Coronary IVUS Initial, PCI procedure, Coronary Stent, Coronary Stent Initial 10:50:39 Heparin Bolus 4000 units I.V. was administered by Norm Lao RN; for anticoagulation; 10:50:51 IVUS catheter advanced over wire. 10:50:55 IVUS pass to RCA lesion performed. 10:50:57 IVUS catheter removed over wire. 10:51:19 LESION < 50% 10:53:27 Place stent Inflation Number: 1 A CHRISTINA RX 2.25 x 15 stent ([id number]) was prepped and advanced across the R PDA. The stent was deployed at 11 JORGE for 0:10 (min:sec). 10:53:33 Stent catheter was removed intact over wire. 10:53:34 Wire removed. 10:53:35 Guide catheter removed. 10:56:11 TR BAND Standard ([id number]) opened to sterile field. 10:56:23 Sheath removed intact; hemostasis achieved with Mechanical Compression to the Right Radial artery. 10:56:25 Procedure ended.(Physican Out) 10:56:45 Fluoroscopy time 02.50 minutes. 10:56:59 Flurop Dose total: 277 10:56:59 Fluoroscopy dose: 277 mGy 10:57:06 Contrast amount:Isovue 300 37ml. 10:57:08 Sharps counted by scrub and verified by R.N. 10:57:13 TR band inflated with 10cc of air. 10:57:19 Insertion/operative site no bleeding no hematoma. 10:57:28 Post right radial artery:stable 10:57:36 Post-procedure physical assessment completed. ASA score P 2 - A patient with mild systemic disease as per Scott Tomas MD. 10:57:41 Post procedure rhythm: sinus rhythm 10:57:46 Estimated blood loss: 10 ml 10:57:48 Post procedure instruction explained to patient.Patient verbalizes understanding. 10:57:55 Patient needs reinforcement of post procedure teaching. 10:58:34 Procedure and supply charges have been captured, reviewed, submitted and are correct. 10:58:38 Vital chart was stopped 10:58:44 See physician's report for complete and final results. 10:58:48 Report given to Pre/Post Procedure Room. 10:58:56 Patient transfered to Pre/Post Procedure Room with Stretcher. 10:58:59 Procedure ended. 10:58:59 Full Disclosure recording stopped 10:59:03 End room use (Document Last) Intervention Summary Intervention Notes Time ActionType Lesion and Equipment Used Action# Pressure Duration Attributes 10:53:27 Place stent R PDA CHRISTINA RX 2.25 x 1 11 00:10 15 stent ([id number]) Device Usage Item Name Manufacture Quantity Catalog Number Hospital Part Current M inimal Lot# / Charge Number Stock Stock Serial# Code ACIST Syringe Acist 1 98973 630590 798563 659764 2 0 (99591) Medical Systems Inc Bag Decanter Microtek 1 2001S 845508 90227 012330 5 (2001S) Medical Inc. Medline Cath Medline 1 [id number] 502943 83062 504741 5 Pack ([id number]) DIAGNOSTIC St Robbi 1 412320 691527 267941 747988 3 0 WIRE .035 260cm J wire (862354) ACIST Hand Acist 1 45707 966437 170759 697321 5 Control Medical (10819) Systems Inc ACIST Manifold Acist 1 73267 783601 526114 355757 5 (80787) Medical Systems Inc Tegaderm 4 x 4 3M 1 1626W 807942 129406 873342 5 (1626W) CHOICE PT [place] 1 [id number] 653225 268520 443681 5 Extra Support Scientific 182cm wire ([id number]) INFLATOR Merit Merit 1 HJ4813 640354 591079 075752 1 5 Optimus3 (JN6875) SHEATH 6FR Terumo 1 [id number] 505293 167381 210145 5 Slender (80-1060) GUIDE 6FR AR Medtronic 1 [id number] 457948 49793 523086 1 2.0 SH catheter ([id number]) [place] 1 54697I 466510 242454 074580 8 [place] IVUS Catheter (00072X) CHRISTINA RX 2.25 x Medtronic 1 [id number] 444815 0532583 586041 5 [id number] 15 stent ([id number]) TR BAND Terumo 1 [id number] 300434 886134 687701 4 0 Standard ([id number]) Signature Audit [place] Stage Time Signature Unsigned Intra-Procedure 10/06/2018 Saad Scott 10:59:28 AM RT(R) (CV) Signatures Monitor : Saad Scott RT Signature : Date : Time : [facility] [address] [place] [address]
[~2018-10-06 08:18] MED LIST changes: +BAYER CHEWABLE81 MG PO; +EFFIENT10 MG PO; +PLAVIX75 MG PO; +PRAVACHOL20 MG PO; +TOPROL XL50 MG PO
[2018-10-06 08:55] VITALS: BP 138/73; Ht 170.2 cm; Wt 76.4 kg
[2018-10-06 09:12] LABS: BASOPHILS 0.5 % (0-2); EOSINOPHILS 2.5 % (0-7); HEMATOCRIT 39.5 % (42.0-54.0); HEMOGLOBIN 13.3 g/dL (13.5-17.5); IMMATURE GRANULOCYTES 0.5 % (0-5); MCH 28.1 pg (26.0-34.0); MCHC 33.7 g/dL (31.0-37.0); MCV 83.5 fL (80.0-100.0); MEAN PLATELET VOLUME 10.6 fL (7.4-10.4); MONOCYTES 12.9 % (2-11); NEUTROPHILS 57.6 % (40-80); PLATELET COUNT 224 10x3/uL (130-400); RBC 4.73 10x6/uL (4.20-6.10); RDW 14.1 % (11.5-14.5); WBC 8.7 10x3/uL (4.8-10.8)
[2018-10-06 09:32] LABS: CALC OSMOLALITY 281 mosm/kg (275-300); CARBON DIOXIDE 25.3 mmol/L (21.0-32.0); CHLORIDE - SERUM 107 mmol/L (98-107); GLUCOSE 88 mg/dL (74-106); POTASSIUM - SERUM 3.6 mmol/L (3.5-5.1); SODIUM 142 mmol/L (136-145); UREA NITROGEN 13 mg/dL (7-18); eGFR NON AFRICAN AMERICAN 79 mL/min (90-120)
--- NOTE | 2018-10-06 11:15 | NUR ---
1115 RECIEVED TO ROOM VIA STRETCHER FROM DIRECTOR OF CAREER RESOURCES WITH TR BAND TO R/WRIST CDI NO BLEEDING OR HEMATOMA NOTED. PATIENT CONNECTED TO MONITOR FOR OBSERVATION WITH HR 69 BP 104/61 CHEST PAIN DENIED
--- NOTE | 2018-10-06 11:28 | NUR ---
RESTING QUIETLY WITH FAMILY AT BEDSIDE TR BAND REMAINS CDI WITH NO BLEEDING OR HEMATOMA NOTED. VSS
--- NOTE | 2018-10-06 12:00 | NUR ---
TR BAND REMAINS CDI WITH NO BLEEDING OR HEMATOMA NOTED. PATIENT DENIED PAIN OR NEEDS AT THIS TIME FAMILY IS PRESENT IN ROOM
--- NOTE | 2018-10-06 12:37 | NUR ---
RESTING QUIETLY WITH EYES CLOSED. VSS AND TR BAND TO R/WRIST IS CDI
--- NOTE | 2018-10-06 13:01 | NUR ---
TR BAND IS INTACT WITH NO BLEEDING OR HEMATOMA NOTED. PATIENT DENIED PAIN AT THIS TIME FAMILY IS PRESENT IN ROOM
--- NOTE | 2018-10-06 13:41 | NUR ---
4 CC AIR REMOVED FROM TR BAND WITH NO BLEEDING OR HEMATOMA NOTED
--- NOTE | 2018-10-06 13:59 | NUR ---
4 CC AIR REMOVED FROM TR BAND WITH NO BLEEDING NOTED
--- NOTE | 2018-10-06 14:10 | NUR ---
4 CC AIR REMOVED FROM TR BAND WITH NO BLEEDING OR HEMATOMA
--- NOTE | 2018-10-06 14:28 | NUR ---
4 CC AIR REMOVED FROM TR BAND WITH NO BLEEDING NOTED
--- NOTE | 2018-10-06 14:45 | NUR ---
PIV REMOVED WITH DRESSING APPLIED. PATIENT TOLERATING SANDWICH AND SODA WITH NAUSEA DENIED
--- NOTE | 2018-10-06 15:00 | NUR ---
VERBAL AND WRITTEN DISCHARGE GONE OVER WITH PATIENT AND FAMILY. PATIENT UP TO GET DRESSED FOR DISCHARGE HOME
--- NOTE | 2018-10-06 15:11 | NUR ---
TR BAND REMOVED WITH DRESSING APPLIED. PATIENT LEFT VIA WC TO PARKING FOR RIDE HOME NO DISTRESS
--- NOTE | 2018-10-10 12:11 | HP ---
PATIENT: TASIA HINES MEDICAL RECORD: [id number] ACCOUNT: [id number] LOCATION:[facility] : 50 ADMISSION DATE: 10/06/18 PCP: UNKNOWN HISTORY AND PHYSICAL EXAMINATION DIAGNOSES: 1. Angina. 2. Coronary artery disease. 3. PTCA and stent of LAD and circumflex last week in conjunction with acute myocardial infarction with concomitant disease in RCA. 4. Hypertension. 5. Hyperlipidemia. HISTORY: Mr. Hines presented last week with acute anterior myocardial infarction. He underwent PTCA and stent of LAD and circumflex. He is now brought back for PTCA and stent of the RCA. PHYSICAL EXAMINATION: GENERAL APPEARANCE: Well-nourished, well-developed, appears stated age. Level of distress, comfortable. PSYCHIATRIC: Mental status, alert, normal affect. Orientation, oriented to time, place and person. EYES: Lids and conjunctiva, noninjected. No discharge, no pallor. ENT: Lips, teeth, gums, normal dentition. Oropharynx, no cyanosis, no pallor. NECK: Carotid arteries, bilateral normal upstroke, no bruits, no thrills. JUGULAR VEINS: No jugular venous pressure or distention. CERVICAL LYMPH NODES: Nontender, nonenlarged. THYROID: Not enlarged. Nontender. No nodules. LUNGS: Respiratory effort, unlabored. CHEST: Normal curvature. No thoracic deformity. No chest wall tenderness. Percussion, resonant. Auscultation, clear. No wheezes, no rales, no rhonchi. CARDIOVASCULAR: Precordial exam, nondisplaced. No heaves or pericardial thrills. Rate and rhythm, regular. Heart sounds, normal S1, normal S2. No S3, no gallop, no rub. Systolic murmur, not heard. Diastolic murmur, not heard. EXTREMITIES: No cyanosis, no edema. Peripheral pulses, full and equal in all extremities, except as noted. No bruits appreciated. ABDOMEN: Soft, nondistended. Normal aorta. No bruit. Nontender. No masses. Liver, nontender, no hepatomegaly. Spleen, nontender, no splenomegaly. MUSCULOSKELETAL: No joint tenderness. No joint swelling. No erythema. NEUROLOGICAL: Normal gait, normal strength, normal tone. SKIN: Warm and dry. OVERALL IMPRESSION: Anginal symptomatology with critical disease of the RCA. We will proceed with PTCA and stent of the RCA. TRANSINT:[id number] Voice Confirmation ID: [id number] DOCUMENT ID: [id number] HISTORY AND PHYSICAL [id number] TASIA HINES JEFFREY MD at 1211 CC: [id number] DICTATION DATE: 10/06/18 1044 NETBACKUP ADMIN: 10/06/18 1126 DEP CLI 10/06/18 [place] [id number]
--- NOTE | 2018-10-10 12:11 | OP ---
PATIENT NAME: TASIA HINES MEDICAL RECORD: [id number] :50 LOCATION:D.CAT ADMISSION DATE: SURGEON: AZEEM NARAYANAN MD DATE OF OPERATION: 10/06/2018 PROCEDURES: 1. PTCA stent RCA. 2. Intravascular ultrasound. 3. Selective coronary angiography. INDICATION: Angina and coronary artery disease. PROCEDURE IN DETAIL: After informed consent was obtained and after detailed description of risks, benefits as well as alternative therapies, the patient elected to proceed with angiogram and angioplasty. The right radial area was prepped, draped in normal sterile fashion. Right radial artery was cannulated via modified Seldinger technique with placement of 6-Cypriot sheath. All catheters exchanged through this sheath. FINDINGS: The right coronary has a hazy area proximally; however, intravascular ultrasound reveals that this is no greater than 10% to 20%. The PDA has a 90% stenosis. This was addressed with a 2.5 x 15 mm [place] stent. Result was 0% residual stenosis. OVERALL IMPRESSION: Successful percutaneous transluminal coronary angioplasty stent of the right coronary artery going from 90% initial stenosis to 0% residual. TRANSINT:[id number] Voice Confirmation ID: [id number] DOCUMENT ID: [id number] AZEEM NARAYANAN MD at 1211 CC: [id number] DICTATION DATE: 10/06/18 1059 AERONAUTICAL ENGINEERING TEACHER: 10/06/18 1218 DEP CLI 10/06/18 [place] [address]
== END 2018-10-06 15:12 | disposition home or self-care (01) ==
LOC: D.CATH 08:18
PROVIDERS: Internal Medicine Interventional Cardiology
DX: I25.119 Atherosclerotic heart disease of native coronary artery with unspecified angina pectoris (principal); Z01.812 Encounter for preprocedural laboratory examination; Z95.5 Presence of coronary angioplasty implant and graft; I10 Essential (primary) hypertension; E78.5 Hyperlipidemia, unspecified
CPT/HCPCS: 92978; C9600

== ENCOUNTER → 2019-01-07 09:03 | Outpatient (CLI) | payer MEDICARE ==
[2018-10-06 08:55] VITALS: BMI 26.3
[2019-01-07 17:06] LABS: CHOL - HDL RATIO 2.5 ratio (2.3-4.9); LDL-HDL RATIO 1.1 ratio (1.5-3.5)
== END | disposition home or self-care (01) ==
LOC: D.HCCARDIO 09:00
PROVIDERS: ATTEND Internal Medicine Interventional Cardiology
DX: I50.9 Heart failure, unspecified (principal)

== ENCOUNTER → 2019-01-07 16:48 | Outpatient (CLI) | payer MEDICARE ==
[2018-10-06 08:55] VITALS: BMI 26.3
--- NOTE | ~2019-01-07 | EC ---
PATIENT:TASIA HINES DATE OF SERVICE: 01/07/19 SEX: M MEDICAL RECORD: [id number] DATE OF : 50 LOCATION:D.LAB AGE OF PATIENT: 68 ADMISSION DATE: 01/07/19 REFERRING PHYSICIAN: INTERPRETING PHYSICIAN: AZEEM NARAYANAN MD ECHOCARDIOGRAM REPORT ECHO CHARGES Date: CLINICAL DIAGNOSIS: ECHOCARDIOGRAPHIC MEASUREMENTS (adult normal given) AC root (d.<3.7cm) cm LV Septum d (<1.2 cm> cm Valve Excursion cm LV Septum (systole) cm Left Atria (s.<4.0cm> cm LVPW d(<1.2cm) cm RV (d.<2.3cm) cm LVPW (sytole) cm LV diastole(<5.6CM) cm MV E-F(>70mm/sec) cm LV systole cm LVOT Diameter cm MV exc.(>10mm) cm Est.ejection fraction (50-75%) % DOPPLER: LVIT cm/sec A cm/sec E cm/sec LA cm/sec RVSP mmHg LVOT cm/sec AOP1/2T m/s Asc. Ao cm/sec RVOT cm/sec RA cm/sec PA cm/sec AV Gradient Peak mmHg AV Mean mmHg AV Area cm MV Gradient Peak mmHg MV Mean mmHg MV Area cm COMMENTS: Person Investigator: Directory Clerk: ADITI# Pericardial Effusion DATE OF SERVICE: FINDINGS: 1. Left ventricular chamber size is mildly dilated. Left ventricular systolic function is preserved at 55%. 2. Left atrium, right atrium, and right ventricular chamber sizes are dilated. Left atrium measures 4.8 cm. 3. Valvular structures: Mitral valve demonstrates a definite prolapse of the posterior mitral valve leaflet. The remaining valvular structures have normal structure and motion. ECHOCARDIOGRAM REPORT [id number] TASIA HINES 4. Doppler interrogation reveals moderate to severe mitral regurgitation, moderate tricuspid regurgitation, no other valvular insufficiency or stenosis. Pulmonary systolic pressure is estimated at 40 mmHg. 5. No evidence of pericardial effusion or left ventricular thrombus. TRANSINT:[id number] Voice Confirmation ID: [id number] DOCUMENT ID: [id number] AZEEM NARAYANAN MD CC: [id number] DICTATION DATE: 01/07/19 1637 ALUMINUM SIDING APPLICATOR: 01/07/19 2221 [facility] [address] [place] [address]
== END | disposition home or self-care (01) ==
LOC: D.LABREF 16:48
PROVIDERS: ATTEND Internal Medicine Interventional Cardiology
DX: E78.5 Hyperlipidemia, unspecified (principal)